=== PATIENT | male | born 1950 | race Two or more races ===

== ENCOUNTER 2017-05-04 09:18 | Emergency (ER) | payer OTHER, MEDICAID ==
[2017-05-04 09:25] VITALS: TEMP 97.9
[2017-05-04] MEDS ORDERED: NS 500 ML IV ONE (09:26)
[2017-05-04 09:35] LABS: % IMMATURE GRANULYOCYTES 0.4 % (0.0-1.1); ABSOLUTE IMMATURE GRANULOCYTES 0.03 10^3/uL (0.00-0.10); ADD DIFF? NO; ADD MORPH? NO; ADD SCAN? NO; ATYPICAL LYMPHOCYTE FLAG 0 (0-99); FRAGMENT RBC FLAG 0 (0-99); HEMATOCRIT 43.3 % (40.0-51.0); HEMOGLOBIN 14.2 g/dL (13.7-17.5); LEFT SHIFT FLG 0 (0-99); LIPEMIA HEMOLYSIS FLAG 80 (0-99); MEAN CELL HEMOGLOBIN CONCENTR. 32.8 g/dL (32.4-36.7); MEAN CELL VOLUME 88.5 fL (81.5-99.8); MEAN PLATELET VOLUME 9.3 fL (8.7-11.7); PLATELET CLUMPS FLAG 0 (0-99); PLATELET COUNT 212 10^3/uL (150-400); RED BLOOD CELL COUNT 4.89 10^6/uL (4.40-6.38); RED CELL DISTRIBUTION WIDTH 15.2 % (11.5-15.2)
--- NOTE | 2017-05-04 09:42 | CPEKG ---
Heart Rate: 86 RR Interval: 698 P-R Interval: 152 QRSD Interval: 86 QT Interval: 368 QTC Interval: 440 P Charleston: 52 QRS Charleston: 13 T Wave Charleston: 47 EKG Severity - OTHERWISE NORMAL ECG - EKG Impression: SINUS RHYTHM EKG Impression: LOW VOLTAGE IN FRONTAL LEADS Electronically Signed By: Ernestine Chan 04-May-2017 15:10:16
[2017-05-04 10:10] LABS: ANION GAP 16 mEq/L (8-16); CALCIUM 9.1 mg/dL (8.5-10.4); CARBON DIOXIDE 21 mEq/l (22-31); CHLORIDE 109 mEq/L (97-110); CREATININE 1.3 mg/dL (0.7-1.3); GLOMERULAR FILTRATION RATE 55; GLUCOSE 107 mg/dL (70-100); POTASSIUM 3.7 mEq/L (3.5-5.2); SODIUM 146 mEq/L (134-144)
[2017-05-04 10:21] LABS: TROPONIN I < 0.012 ng/mL (0-0.034)
--- NOTE | 2017-05-04 10:41 | EDPHY ---
H & P Time Seen by Provider: 05/04/17 09:27 HPI/ROS: HPI Fainting episode. 66-year-old male by ambulance. Patient is homeless. [facility] afternoon. He went out with a friend of his yesterday evening and in his words got drunk and drink lots of liquor. He reports he woke up this morning. He went to the store to get some water. While online to by his water he felt lightheaded and lost consciousness. No witnessed seizure activity. EMS was called to the scene and transported the patient to the hospital. He denies any associated headache, chest pain, palpitations, shortness of breath. No neck pain. No numbness or weakness in his extremities. No changes in vision. No other complaints. He is asking for something to eat at this time and is requesting discharge. He states he is asymptomatic at this time ROS: Constitutional: No fever, no chills. As above. Eyes: No discharge. No changes in vision. ENT: No sore throat. No nasal congestion or rhinorrhea. Respiratory: No cough. No shortness of breath. Cardiac: No chest pain, no palpitations. Gastrointestinal: No abdominal pain, no vomiting, no diarrhea. Genitourinary: No hematuria. No dysuria or increased frequency with urination. Musculoskeletal: No back pain. No neck pain. No myalgias or arthralgias. Skin: No rashes. Neurological: No headache. No focal weakness or altered sensation. Past medical history: Asthma, type 2 diabetes, borderline personality disorder. Social history: Homeless, alcohol abuse, polysubstance abuse, smoker. Physical Exam: General Appearance: Alert, no distress. Dirty. This patient is responding to questions appropriately and in full sentences. This patient appears well- hydrated and well-nourished. Eyes: Pupils equal and round no pallor or injection. No lid edema, erythema or injection. ENT, Mouth: Mucous membranes are moist. The pharyngeal tissues are unremarkable. No edema or swelling. No asymmetry suggestive of abscess. No erythema or exudates. No tongue lacerations or abrasions. Respiratory: There are no retractions, lungs are clear to auscultation with good air movement bilaterally. Cardiovascular: Regular rate and rhythm. No murmur. Gastrointestinal: Abdomen is soft and nontender, no masses, bowel sounds normal. [facility]. No [place] sign. Neurological: Motor sensory function is grossly intact. Cranial nerves are normal. Gait is normal. Skin: Warm and dry, no rashes. Musculoskeletal: Neck is supple and nontender. Extremities are symmetrical. All joints range without pain or impingement. Psychiatric: No agitation. No depression. Database: EKG: EKG time is 9:40 a.m.; EKG shows a narrow complex normal sinus rhythm with a ventricular rate of 86. The CO, QRS, QT intervals are within normal limits. There are no ST-T wave changes indicative of ischemic or injury pattern. No evidence of right heart strain. No evidence of Brugada syndrome, WPW, hypertrophic cardiomyopathy. Interpreted by me. Imaging: Procedures: Emergency department course: IV placed. He was placed on a formula mixer. EKG performed. He was given 500 cc of IV normal saline as a bolus. Patient re-evaluated at 10:40 a.m., he is requesting a meal. Results of his EKG and emergency department workup discussed with him. He denies any complaints at this time. He has been up and ambulatory to the bathroom. 10:45 a.m., I was told by the nursing staff that when the patient was not given a meal tray but was offered a sandwich and some crackers he got up and left the emergency department prior to completion of his evaluation. I did not see this patient again. Differential Diagnosis: The differential diagnosis on this patient includes but is not limited to dehydration, alcohol intoxication, noncardiac syncope. WPW, Brugada syndrome, other arrhythmia, CVA, pulmonary embolism, subarachnoid hemorrhage, mi unlikely. This represents a partial list of diagnoses considered. These considerations are based on history, physical exam, past history, reassessment and diagnostic testing. Smoking Status: Heavy smoker Constitutional: Initial Vital Signs Temperature (C) 36.6 C 05/04/17 09:20 Heart Rate 88 05/04/17 09:20 Respiratory Rate 16 05/04/17 09:20 Blood Pressure 95/58 L 05/04/17 09:20 O2 Sat (%) 93 05/04/17 09:20 O2 Delivery Mode Room Air O2 (L/minute) 2 Allergies/Adverse Reactions: No Known Allergies Allergy (Unverified 05/04/17 09:25) Home Medications: Medication Instructions Recorded NK [No Known Home Meds] 05/04/17 Medical Decision Making - Data Points Laboratory Results: Laboratory Results 05/04/17 09:26 05/04/17 09:26 Medications Given: Discontinued Medications Sodium Chloride (Ns) 500 mls @ 0 mls/hr IV ONCE ONE; Wide Open PRN Reason: Protocol Stop: 05/04/17 09:27 Last Admin: 05/04/17 09:45 Dose: 500 mls Departure - Departure Disposition: Against Medical Advice Clinical Impression: Syncope, Alcohol abuse Condition: Good Instructions: Syncope (ED) Additional Instructions: Read and follow provided instructions. Follow-up with your primary care physician at [facility] in 1-2 days for re -evaluation. Keep yourself well hydrated. Drink lots of fluids. Return to the emergency department for fainting, chest pain, shortness of breath , headache or other serious concerns. Referrals: [facility],. [Clinic] - As per Instructions
[2017-05-04 10:42] VITALS: BP 141/83; PULSE 82; RESP 18; O2SAT 97
== END 2017-05-04 10:44 | disposition left against medical advice (07) ==
LOC: EDUNIT#
DX: R55 Syncope and collapse (principal); F10.10 Alcohol abuse, uncomplicated; E11.9 Type 2 diabetes mellitus without complications; J45.909 Unspecified asthma, uncomplicated; F17.200 Nicotine dependence, unspecified, uncomplicated; E86.9 Volume depletion, unspecified

== ENCOUNTER 2017-09-28 03:07 | Emergency (ER) | payer OTHER, MEDICAID ==
[~2017-09-28 03:07] MED LIST: DOXYCYCLINE HYCLATE 100 MG CAP/TAB PO SCH; predniSONE 20 MG TAB PO SCH
[2017-09-28] MEDS ORDERED: methylPREDNISolone SOD SUCC 125 MG/2 ML VIAL IVP ONE (03:11)
[2017-09-28] MEDS ORDERED: IPRATROPIUM/ALBUTEROL 3 ML DEYVIAL ONE (03:11)
[2017-09-28] MEDS: IPRATROPIUM/ALBUTEROL 3 ML DEYVIAL IH ONE ×2 (03:16→06:21)
--- NOTE | 2017-09-28 03:18 | EDPHY ---
H & P Stated Complaint: COPD exacerbation. Time Seen by Provider: 09/28/17 03:11 HPI/ROS: HPI The patient presents with shortness of breath and coughing which has been progressively worse over the last few days. He felt very short of breath tonight while he was at the [facility] [place] [facility] and called 911. He has a history of COPD and is supposed to be taking medication and using supplemental oxygen, he is not doing either of these. He has a cough productive of whitish sputum. He has not had any fever. Upon arrival of the medics he was hypoxic, sats improved with 2 L nasal cannula.. REVIEW OF SYSTEMS Constitutional: No fever, no chills. Eyes: No discharge. ENT: No sore throat. Cardiovascular: No chest pain, no palpitations. Respiratory: See HPI Gastrointestinal: No abdominal pain, no vomiting. Genitourinary: No hematuria. Musculoskeletal: No back pain. Skin: No rashes. Neurological: No headache. PMHx: COPD Soc Hx: Homeless PHYSICAL General Appearance: Alert, actively coughing but in no respiratory distress Eyes: Pupils equal and round no pallor or injection ENT, Mouth: Mucous membranes moist Respiratory: Slightly tachypneic, expiratory wheezes are present, actively coughing Cardiovascular: Regular rate and rhythm Gastrointestinal: Abdomen is soft and non-tender, no masses, bowel sounds normal Neurological: A&O, moves all extremities Skin: Warm and dry, no rashes Musculoskeletal: Neck is supple non tender Extremities: symmetrical, full range of motion Psychiatric: Patient is oriented X 3, there is no agitation Source: Patient, EMS Exam Limitations: No limitations - Personal History Current Tetanus/Diphtheria Vaccine: Unsure Current Tetanus Diphtheria and Acellular Pertussis (TDAP): Unsure - Medical/Surgical History Hx Asthma: Yes Hx Chronic Respiratory Disease: Yes Hx Diabetes: No Hx Cardiac Disease: No Hx Renal Disease: No Hx Cirrhosis: No Hx Alcoholism: No Hx HIV/AIDS: No Hx Splenectomy or Spleen Trauma: No Other PMH: COPD, emphysema, asthma. - Social History Smoking Status: Current every day smoker Constitutional: Initial Vital Signs Temperature (C) 37.1 C 09/28/17 03:09 Heart Rate 102 H 09/28/17 03:09 Respiratory Rate 18 09/28/17 03:09 Blood Pressure 143/90 H 09/28/17 03:09 O2 Sat (%) 88 L 09/28/17 03:09 O2 Delivery Mode Room Air Allergies/Adverse Reactions: No Known Allergies Allergy (Unverified 05/04/17 09:25) Home Medications: Medication Instructions Recorded Albuterol [Proventil Inhaler HFA 1 - 2 puffs IH Q4H #1 mdi 09/28/17 (*)] Doxycycline Hyclate [Vibramycin 100 mg PO BID 7 Days cap 09/28/17 100 MG (*)] predniSONE 40 mg PO DAILY 4 Days tablet 09/28/17 Medical Decision Making - Diagnostics Imaging Results: Chest x-ray two view shows no obvious infiltrate, no cardiomegaly, interpreted by me, radiology interpretation is pending. Imaging: I viewed and interpreted images myself Differential Diagnosis: 67-year-old male, with history of homelessness, COPD who presents with progressive shortness of breath and cough over the last several days. On arrival, he is hypoxic, tachypneic, has expiratory wheezes and is actively coughing. Differential diagnosis includes COPD exacerbation, pneumonia, viral URI, influenza. In the emergency department, the patient was placed on 2 L nasal cannula with improvement in his oxygenation. DuoNeb was administered and he felt much better. Chest x-ray was performed and was unremarkable. Basic labs were also normal. He was given a dose of doxycycline and Solu-Medrol for presumed COPD exacerbation. He did refuse influenza nasal swab because he thought it would be very uncomfortable. He was monitored for several hours, his oxygenation improved. We were able to take him off of supplemental oxygen and he had no respiratory distress whatsoever and felt quite well. His sats were in the high 80s, however when he coughs they increase to the 90s. After repeat albuterol neb, sats are in the low 90s. I have offered him admission, however he declines. He would like to go home. It seems that he would benefit from supplemental oxygen as an outpatient and he has been working with a distributor to obtain this at his [facility] [place] [facility]. He has been off of it for the last few months. I have written additional prescription for oxygen for him and I will put in a note for the corrections caseworker. I have advised him to follow up in [facility] in 1-2 days for recheck. We will use the [employer] program to provide him his medications to go home with. - Data Points Laboratory Results: Laboratory Results 09/28/17 03:46 09/28/17 03:46 09/28/17 09/28/17 03:46 03:46 WBC 10.63 10^3/uL H 10^3/uL (3.80-9.50) RBC 5.17 10^6/uL 10^6/uL (4.40-6.38) Hgb 15.3 g/dL g/dL (13.7-17.5) Hct 46.4 % % (40.0-51.0) MCV 89.7 fL fL (81.5-99.8) MCH 29.6 pg pg (27.9-34.1) MCHC 33.0 g/dL g/dL (32.4-36.7) RDW 15.1 % % (11.5-15.2) Plt Count 284 10^3/uL 10^3/uL (150-400) MPV 8.5 fL L fL (8.7-11.7) Neut % (Auto) 52.8 % % (39.3-74.2) Lymph % (Auto) 38.5 % % (15.0-45.0) Sampson % (Auto) 5.6 % % (4.5-13.0) Eos % (Auto) 2.1 % % (0.6-7.6) Baso % (Auto) 0.8 % % (0.3-1.7) Nucleat RBC Rel Count 0.0 % % (0.0-0.2) Absolute Neuts (auto) 5.61 10^3/uL 10^3/uL (1.70-6.50) Absolute Lymphs (auto) 4.09 10^3/uL H 10^3/uL (1.00-3.00) Absolute Monos (auto) 0.60 10^3/uL 10^3/uL (0.30-0.80) Absolute Eos (auto) 0.22 10^3/uL 10^3/uL (0.03-0.40) Absolute Basos (auto) 0.09 10^3/uL 10^3/uL (0.02-0.10) Absolute Nucleated RBC 0.00 10^3/uL 10^3/uL (0-0.01) Immature Gran % 0.2 % % (0.0-1.1) Immature Gran # 0.02 10^3/uL 10^3/uL (0.00-0.10) Sodium 142 mEq/L mEq/L (134-144) Potassium 4.2 mEq/L mEq/L (3.5-5.2) Chloride 108 mEq/L mEq/L (97-110) Carbon Dioxide 21 mEq/l L mEq/l (22-31) Anion Gap 13 mEq/L mEq/L (8-16) BUN 16 mg/dL mg/dL (7-23) Creatinine 0.9 mg/dL mg/dL (0.7-1.3) Estimated GFR > 60 Glucose 106 mg/dL H mg/dL (70-100) Calcium 9.8 mg/dL mg/dL (8.5-10.4) Medications Given: Discontinued Medications Albuterol (Proventil Neb) 3 ml IH EDNOW ONE Stop: 09/28/17 06:19 Last Admin: 09/28/17 06:22 Dose: 3 ml Albuterol Sulfate (Proventil Inh Prepack) 1 mdi TAKEHOME EDNOW ONE Stop: 09/28/17 05:39 Last Admin: 09/28/17 06:06 Dose: 1 mdi Albuterol/Ipratropium (Duoneb) 3 ml IH EDNOW ONE Stop: 09/28/17 03:12 Last Admin: 09/28/17 06:21 Dose: 3 ml Doxycycline Hyclate (Vibramycin 100 Mg Prepack#2) 1 btl TAKEHOME EDNOW ONE Stop: 09/28/17 05:38 Last Admin: 09/28/17 06:07 Dose: 1 btl Doxycycline Hyclate (Doxycycline Hyclate) 100 mg PO EDNOW ONE PRN Reason: Protocol Stop: 09/28/17 05:38 Last Admin: 09/28/17 06:05 Dose: 100 mg Methylprednisolone Sodium Succinate (Solu-Medrol) 125 mg IVP EDNOW ONE Stop: 09/28/17 03:12 Last Admin: 09/28/17 03:42 Dose: 125 mg Departure - Departure Disposition: Home, Routine, Self-Care Clinical Impression: Chronic obstructive pulmonary disease with acute exacerbation Condition: Good Instructions: COPD (Chronic Obstructive Pulmonary Disease) (ED) Additional Instructions: Please follow-up with [facility] in 1-2 days. You should return to the emergency department if your worse in any way. Please continue to work on obtaining your home oxygen. I have asked that our corrections caseworker assist you with this as needed. Referrals: [facility] [Outside] - As per Instructions Prescriptions: Albuterol [Proventil Inhaler HFA (*)] 1 - 2 puffs IH Q4H #1 mdi Doxycycline Hyclate [Vibramycin 100 MG (*)] 100 mg PO BID 7 Days cap predniSONE 40 mg PO DAILY 4 Days tablet
[2017-09-28 04:05] LABS: % IMMATURE GRANULYOCYTES 0.2 % (0.0-1.1); ABSOLUTE IMMATURE GRANULOCYTES 0.02 10^3/uL (0.00-0.10); ADD DIFF? NO; ADD MORPH? NO; ADD SCAN? NO; ATYPICAL LYMPHOCYTE FLAG 10 (0-99); FRAGMENT RBC FLAG 0 (0-99); HEMATOCRIT 46.4 % (40.0-51.0); HEMOGLOBIN 15.3 g/dL (13.7-17.5); LEFT SHIFT FLG 0 (0-99); LIPEMIA HEMOLYSIS FLAG 80 (0-99); MEAN CELL HEMOGLOBIN 29.6 pg (27.9-34.1); MEAN CELL VOLUME 89.7 fL (81.5-99.8); MEAN PLATELET VOLUME 8.5 fL (8.7-11.7); PLATELET CLUMPS FLAG 0 (0-99); PLATELET COUNT 284 10^3/uL (150-400); RED BLOOD CELL COUNT 5.17 10^6/uL (4.40-6.38); RED CELL DISTRIBUTION WIDTH 15.1 % (11.5-15.2)
[2017-09-28 04:10] LABS: ANION GAP 13 mEq/L (8-16); CALCIUM 9.8 mg/dL (8.5-10.4); CARBON DIOXIDE 21 mEq/l (22-31); CHLORIDE 108 mEq/L (97-110); CREATININE 0.9 mg/dL (0.7-1.3); GLOMERULAR FILTRATION RATE > 60; GLUCOSE 106 mg/dL (70-100); POTASSIUM 4.2 mEq/L (3.5-5.2); SODIUM 142 mEq/L (134-144)
[2017-09-28] MEDS ORDERED: DOXYCYCLINE 100 MG PREPACK#2 BTL TAKEHOME ONE (05:37)
[2017-09-28] MEDS ORDERED: DOXYCYCLINE HYCLATE 100 MG CAP/TAB PO ONE (05:37)
[2017-09-28] MEDS ORDERED: ALBUTEROL INH PREPACK MDI TAKEHOME ONE (05:38)
[2017-09-28] MEDS ORDERED: ALBUTEROL 3 ML DEYVIAL IH ONE (06:18)
[2017-09-28 06:36] VITALS: TEMP 97.9
[2017-09-28 06:38] VITALS: BP 143/94; PULSE 81; RESP 18; O2SAT 90
--- NOTE | 2017-09-28 17:44 | ASMTCMCOM ---
CM Note CM Note Notes: Patient presented to the ER this morning and left AMA. Patient has history of COPD and has prescription for home O2, although patient is homeless, stays at the [place] custodial and has not followed with with referrals to the [facility] in the past. Patient had left prior to my arrival this morning.I contcted the patient's sister Keturah (do not have a contact for this patient) shortly after I arrived this morning to discuss options for obtaining "home" O2. Keturah told me that she had received a call from the patient recently and that she was on her way to meet him in [place]. I suggested that she encourage patient to follow up with an appointment at the clinic in order to establish a PCP and have follow up and management for his oxygen needs. I also explained that if/when the patient presents to the ER, we can ask respiratory therapy to contact an oxygen company to see patient prior to discharge to arrange home 02, but that the patient will still need to be followed with a PCP for continued orders and medical management. Keturah verbalizes understanding and states she will try to encourage patient to follow up with the clinic Date Signed: 09/28/2017 05:44 PM Electronically Signed By:Stefany Gibbons RN
== END 2017-09-28 06:38 | disposition home or self-care (01) ==
LOC: EDUNIT#
DX: J44.1 Chronic obstructive pulmonary disease with (acute) exacerbation (principal); F17.200 Nicotine dependence, unspecified, uncomplicated
CPT/HCPCS: 71020; 96374; 99284; J2930; J7512

== ENCOUNTER 2019-01-25 14:59 | Emergency (ER) | payer OTHER, MEDICAID ==
[2019-01-25 16:13] LABS: PLATELET COUNT 279 10^3/uL (150-400)
--- NOTE | 2019-01-25 16:21 | EDPHY ---
H & P Time Seen by Provider: 01/25/19 15:58 HPI/ROS: HPI Feeling paranoid. Recently started psychiatric medications again. 68-year-old male. He is a [facility] client. He has a history of bipolar disorder and schizophrenia. He was off of his medications for about a week. He met with his block and case maker with [facility] today. He was started on his medications again. He presents to the emergency department stating that he is feeling very paranoid and that he feels people are watching him. He was brought to the emergency department to be evaluated by his block and case maker. He is not having suicidal thoughts. He denies significant depression. He states that he does feel anxious. ROS: Constitutional: No fever, no chills. As above. Eyes: No discharge. No changes in vision. ENT: No sore throat. No nasal congestion or rhinorrhea. Respiratory: No cough. No shortness of breath. Cardiac: No chest pain, no palpitations. Gastrointestinal: No abdominal pain, no vomiting, no diarrhea. Genitourinary: No hematuria. No dysuria or increased frequency with urination. Musculoskeletal: No back pain. No neck pain. No myalgias or arthralgias. Skin: No rashes. Neurological: No headache. No focal weakness or altered sensation. Past medical history: COPD, emphysema, asthma. Bipolar, schizophrenia. As above. Social history: Smoker. Has an apartment in [place]. Denies alcohol. Physical Exam: General Appearance: Alert, mildly anxious but not in distress. This patient is responding to questions appropriately and in full sentences. This patient appears well-hydrated and well-nourished. Eyes: Pupils equal and round no pallor or injection. No lid edema, erythema or injection. Neurological: Motor sensory function is grossly intact. Cranial nerves are normal. Gait is normal. Skin: Warm and dry, no rashes. Extremities are symmetrical. All joints range without pain or impingement. Psychiatric: As above. No depression. Database: EKG: Imaging: Procedures: Emergency department course: Triage vital signs reviewed. He was mildly tachycardic. Vital signs are otherwise normal. The patient was given 5 mg of oral Valium. He was then re- evaluated. He is feeling more relaxed after these medications and he feels safe to return to his apartment. He is not suicidal. We will contact his block and case maker who dropped him off at the emergency department to come back and pick him up and take him home. At this time I do not feel he requires emergent behavioral health evaluation. The patient's remaining emergency department course under my care has been uneventful. He was discharged with his block and case maker in good condition. Differential Diagnosis: The differential diagnosis on this patient includes but is not limited to anxiety, transient paranoia, history of schizophrenia. Suicidal ideation, severe major depression unlikely. This represents a partial list of diagnoses considered. These considerations are based on history, physical exam, past history, reassessment and diagnostic testing. Smoking Status: Current every day smoker Constitutional: Initial Vital Signs Temperature (C) 36.7 C 01/25/19 15:06 Heart Rate 117 H 01/25/19 15:06 Respiratory Rate 18 01/25/19 15:06 Blood Pressure 113/80 01/25/19 15:06 O2 Sat (%) 93 01/25/19 15:06 O2 Delivery Mode Room Air Allergies/Adverse Reactions: No Known Allergies Allergy (Unverified 05/04/17 09:25) Home Medications: Medication Instructions Recorded Albuterol [Proventil Inhaler HFA 1 - 2 puffs IH Q4H #1 mdi 09/28/17 (*)] Citalopram 01/25/19 Medical Decision Making - Data Points Laboratory Results: Laboratory Results 01/25/19 16:04 01/25/19 01/25/19 01/25/19 16:08 16:04 16:04 WBC 10.29 10^3/uL H 10^3/uL (3.80-9.50) RBC 5.82 10^6/uL 10^6/uL (4.40-6.38) Hgb 16.2 g/dL g/dL (13.7-17.5) Hct 49.3 % % (40.0-51.0) MCV 84.7 fL fL (81.5-99.8) MCH 27.8 pg L pg (27.9-34.1) MCHC 32.9 g/dL g/dL (32.4-36.7) RDW 15.5 % H % (11.5-15.2) Plt Count 279 10^3/uL 10^3/uL (150-400) MPV 8.7 fL fL (8.7-11.7) Neut % (Auto) 73.2 % % (39.3-74.2) Lymph % (Auto) 18.2 % % (15.0-45.0) [place]inger % (Auto) 7.5 % % (4.5-13.0) Eos % (Auto) 0.2 % L % (0.6-7.6) Baso % (Auto) 0.6 % % (0.3-1.7) Nucleat RBC Rel Count 0.0 % % (0.0-0.2) Absolute Neuts (auto) 7.54 10^3/uL H 10^3/uL (1.70-6.50) Absolute Lymphs (auto) 1.87 10^3/uL 10^3/uL (1.00-3.00) Absolute Monos (auto) 0.77 10^3/uL 10^3/uL (0.30-0.80) Absolute Eos (auto) 0.02 10^3/uL L 10^3/uL (0.03-0.40) Absolute Basos (auto) 0.06 10^3/uL 10^3/uL (0.02-0.10) Absolute Nucleated RBC 0.00 10^3/uL 10^3/uL (0-0.01) Immature Gran % 0.3 % % (0.0-1.1) Immature Gran # 0.03 10^3/uL 10^3/uL (0.00-0.10) Sodium Pending Potassium Pending Chloride Pending Carbon Dioxide Pending Anion Gap Pending BUN Pending Creatinine Pending Estimated GFR Pending Glucose Pending Calcium Pending Urine Opiates Screen Pending Urine Barbiturates Pending Ur Phencyclidine Scrn Pending Ur Amphetamine Screen Pending U Benzodiazepines Scrn Pending Urine Cocaine Screen Pending U Marijuana (THC) Screen Pending Ethyl Alcohol Pending Departure - Departure Disposition: Home, Routine, Self-Care Clinical Impression: Anxiety Condition: Good Instructions: Anxiety (ED) Additional Instructions: Read and follow provided instructions. Follow-up with [facility] tomorrow for re-evaluation as discussed. Take your medication as prescribed. Return to the emergency department for worsening symptoms or other serious concerns. Referrals: [facility] [Outside] - As per Instructions
[2019-01-25] MEDS ORDERED: DIAZEPAM 5 MG TAB PO ONE (16:28)
[2019-01-25] MEDS ORDERED: DIAZEPAM 5 MG TAB ONE (16:29)
[2019-01-25 16:34] VITALS: BP 119/80
== END 2019-01-25 16:33 | disposition home or self-care (01) ==
LOC: EEVIPCON 14:59
DX: F41.9 Anxiety disorder, unspecified (principal); F20.9 Schizophrenia, unspecified; F31.9 Bipolar disorder, unspecified; J43.9 Emphysema, unspecified; Z87.891 Personal history of nicotine dependence
CPT/HCPCS: 80305; G0480

== ENCOUNTER 2019-01-31 18:40 | Inpatient (IN) | payer OTHER, MEDICAID ==
[2019-01-31] MEDS ORDERED: ASPIRIN 81 MG CHEWABLE TAB PO ONE (18:58)
[2019-01-31] MEDS ORDERED: ASPIRIN 81 MG CHEWABLE TAB ONE (18:59)
--- NOTE | 2019-01-31 19:06 | EDPHY ---
H & P Stated Complaint: cp Time Seen by Provider: 01/31/19 18:49 HPI/ROS: CHIEF COMPLAINT: Chest pain HISTORY OF PRESENT ILLNESS: 68-year-old male presents with chest pain. Onset of chest pain yesterday evening at rest. The pain is severe, 10/10, and persistent. Associated with shortness of breath and dizziness. Unable to do his usual activities or to sleep because of severe pain. No alleviating or aggravating factors. No prior similar symptoms. No prior similar symptoms or history of cardiac disease. REVIEW OF SYSTEMS: complete 10 point ROS reviewed and is negative except for the noted elements in the HPI - Personal History Current Tetanus/Diphtheria Vaccine: Yes Current Tetanus Diphtheria and Acellular Pertussis (TDAP): Yes - Medical/Surgical History Hx Asthma: Yes Hx Chronic Respiratory Disease: Yes Hx Diabetes: No Hx Cardiac Disease: No Hx Renal Disease: No Hx Cirrhosis: No Hx Alcoholism: No Hx HIV/AIDS: No Hx Splenectomy or Spleen Trauma: No Other PMH: COPD, schizophrenia - Family History Significant Family History: No pertinent family hx - Social History Smoking Status: Current every day smoker Alcohol Use: Sober Drug Use: None - Physical Exam Exam: General Appearance: Alert, pleasant Eyes: Pupils equal and round, no conjunctival pallor or injection ENT, Mouth: Mucous membranes moist Neck: Normal inspection Respiratory: Lungs are clear to auscultation Cardiovascular: Regular rate and rhythm Gastrointestinal: Abdomen is soft and nontender Neurological: A&O, nonfocal exam Skin: Warm and dry, no rash Extremities: Nontender, no pedal edema Psychiatric: Mood and affect normal Constitutional: Initial Vital Signs Temperature (C) 36.5 C 01/31/19 18:45 Heart Rate 60 01/31/19 18:45 Respiratory Rate 16 01/31/19 18:45 Blood Pressure 170/103 H 01/31/19 18:45 O2 Sat (%) 94 01/31/19 18:45 O2 Delivery Mode Room Air Allergies/Adverse Reactions: No Known Allergies Allergy (Unverified 01/31/19 18:45) Home Medications: Medication Instructions Recorded Albuterol [Proventil Inhaler HFA 1 - 2 puffs IH Q4H #1 mdi 09/28/17 (*)] Citalopram 01/25/19 Medical Decision Making - Diagnostics EKG Interpretation: EKG interpreted by me reveals normal sinus rhythm, rate 60, ST segment elevation in the inferior and lateral leads, consistent with acute inferolateral NV. Imaging Results: Chest x-ray independently reviewed by me reveals no acute disease. Imaging: I viewed and interpreted images myself ED Course/Re-evaluation: This patient presents with 24 hr history of severe chest pain. Stat EKG reveals acute inferior NV. A cardiac alert was paged overhead. Aspirin 324 mg orally given. Morphine 4 mg IV and Zofran 4 mg IV given for pain control. Stat chest x-ray is unremarkable. Dr. Knox was consulted and saw the patient in ED. The patient was taken straight to the cardiac catheterization lab. He was stable throughout his emergency department stay. Continued to have moderate chest pain. Initial troponin is markedly elevated at 10. I spent a total of 35 minutes of critical care time in obtaining history, performing a physical exam, bedside monitoring of interventions, collecting and interpreting tests and discussion with consultants but not including time spent performing procedures. Differential Diagnosis: Differential diagnosis includes though it is not limited to pneumonia, pneumothorax, pulmonary embolism, aortic dissection, pericarditis, acute coronary syndrome. - Data Points Laboratory Results: Laboratory Results 01/31/19 19:00 01/31/19 19:00 01/31/19 01/31/19 01/31/19 19:04 19:00 19:00 WBC 8.83 10^3/uL 10^3/uL (3.80-9.50) RBC 5.66 10^6/uL 10^6/uL (4.40-6.38) Hgb 15.5 g/dL g/dL (13.7-17.5) Hct 47.5 % % (40.0-51.0) MCV 83.9 fL fL (81.5-99.8) MCH 27.4 pg L pg (27.9-34.1) MCHC 32.6 g/dL g/dL (32.4-36.7) RDW 15.9 % H % (11.5-15.2) Plt Count 312 10^3/uL 10^3/uL (150-400) MPV 8.6 fL L fL (8.7-11.7) Neut % (Auto) 58.1 % % (39.3-74.2) Lymph % (Auto) 32.5 % % (15.0-45.0) Butts % (Auto) 7.7 % % (4.5-13.0) Eos % (Auto) 0.6 % % (0.6-7.6) Baso % (Auto) 0.6 % % (0.3-1.7) Nucleat RBC Rel Count 0.0 % % (0.0-0.2) Absolute Neuts (auto) 5.14 10^3/uL 10^3/uL (1.70-6.50) Absolute Lymphs (auto) 2.87 10^3/uL 10^3/uL (1.00-3.00) Absolute Monos (auto) 0.68 10^3/uL 10^3/uL (0.30-0.80) Absolute Eos (auto) 0.05 10^3/uL 10^3/uL (0.03-0.40) Absolute Basos (auto) 0.05 10^3/uL 10^3/uL (0.02-0.10) Absolute Nucleated RBC 0.00 10^3/uL 10^3/uL (0-0.01) Immature Gran % 0.5 % % (0.0-1.1) Immature Gran # 0.04 10^3/uL 10^3/uL (0.00-0.10) Sodium 136 mEq/L mEq/L (135-145) Potassium 3.8 mEq/L mEq/L (3.5-5.2) Chloride 101 mEq/L mEq/L (97-110) Carbon Dioxide 24 mEq/l mEq/l (22-31) Anion Gap 11 mEq/L mEq/L (6-14) BUN 7 mg/dL mg/dL (7-23) Creatinine 0.6 mg/dL L mg/dL (0.7-1.3) Estimated GFR > 60 Glucose 115 mg/dL H mg/dL (70-100) Calcium 9.4 mg/dL mg/dL (8.5-10.4) POC Troponin I 10.41 ng/mL H ng/mL (0.00-0.08) Medications Given: Discontinued Medications Aspirin (Aspirin) 324 mg PO EDNOW ONE Stop: 01/31/19 18:59 Last Admin: 01/31/19 19:00 Dose: 324 mg Sodium Chloride (Ns) 1,000 mls @ 0 mls/hr IV ONCE ONE PRN Reason: Wide Open Stop: 01/31/19 19:11 Last Admin: 01/31/19 19:15 Dose: Not Given Morphine Sulfate (Morphine) 4 mg IVP EDNOW ONE Stop: 01/31/19 19:09 Last Admin: 01/31/19 19:11 Dose: 4 mg Ondansetron HCl (Zofran) 4 mg IVP EDNOW ONE Stop: 01/31/19 19:10 Last Admin: 01/31/19 19:12 Dose: 4 mg Point of Care Test Results: Chemistry 01/31/19 19:04 POC Troponin I 10.41 ng/mL H ng/mL (0.00-0.08) Departure - Departure Disposition: [facility] Inpatient Acute Clinical Impression: Acute coronary syndrome Condition: Critical
[2019-01-31] MEDS ORDERED: ONDANSETRON 4 MG/2 ML VIAL ONE (19:08)
[2019-01-31] MEDS ORDERED: ONDANSETRON 4 MG/2 ML VIAL IVP ONE (19:09)
[2019-01-31] MEDS ORDERED: NS 1,000 ML IV ONE (19:10)
[2019-01-31 19:17] LABS: PLATELET COUNT 312 10^3/uL (150-400)
[2019-01-31] MEDS ORDERED: fentaNYL 100 MCG/2 ML INJ ONE (19:19)
[2019-01-31] MEDS ORDERED: IOPAMIDOL (ISOVUE-370) 150 ML BTL IV ONE (19:19)
[2019-01-31] MEDS ORDERED: LIDOCAINE 1% 300 MG/30 ML SDV ONE (19:19)
[2019-01-31] MEDS ORDERED: MIDAZOLAM 2 MG/2 ML VIAL ONE ×2 (19:19)
[2019-01-31] MEDS ORDERED: NITROGLYCERIN 1,500 MCG/15 ML VIAL MISC ONE (19:20)
[2019-01-31] MEDS ORDERED: BIVALIRUDIN 250 MG/5 ML VIAL IV ONE (19:20)
--- NOTE | 2019-01-31 19:29 | GHP ---
[f rep st] HISTORY AND PHYSICAL DATE OF ADMISSION: 01/31/2019 I am called in [facility] at 7:14. HISTORY OF PRESENT ILLNESS: Mr. Alvarez is a very pleasant 68-year-old male, history of smoking. No prior cardiovascular history. History of longstanding COPD, actively smoking, who presents with a 1-day history of substernal precordial chest pressure radiating to his jaw. He describes it as 10/1 0, associated with mild shortness of breath, mild nausea, and mild diaphoresis. He came to the emerg ency department for further evaluation. On arrival to the department, he had an EKG showing ST eleva tion 2, 3 and AVF with a blood pressure of 180/70, a heart rate of 82. Cardiac alert was activated. On my arrival, he has continued to have 10/10 discomfort. ALLERGIES: He has no known drug allergies. MEDICATIONS: No medications. SURGICAL HISTORY: Unremarkable. SOCIAL HISTORY: Just moved here from [place]. 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 No signific ant alcohol. PHYSICAL EXAMINATION: VITALS: On my arrival, blood pressure 180/70, current heart rate 82. GENERAL : This is a well-nourished male in mild discomfort, resting flat in bed. HEENT: Significa nt conjunctival injection. He had no scleral icterus. His oropharynx showed no dentures. There was no thrush. NECK: Revealed no JVP at 90 degrees. CHEST: Clear to auscultation, percussion. Palpa tion of the anterior chest wall revealed no RV lift. PULSES: Radial pulses were +3 and equal. Femo ral pulses were +3 and equal. Dorsalis pedis pulses were +2 and equal. EXTREMITIES: He had no akiko pheral edema. SKIN: Revealed no rash. NEURO: He is alert and oriented with normal mood and affect . DATA REVIEWED: EKG showed sinus rhythm with [address]-elevation in 2, 3 and AVF. He has a PVC. LABORATORY DATA: Pending. IMPRESSION: ST-segment elevation myocardial infarction involving the inferior wall likely. PLAN: Directed cardiac catheterization with percutaneous intervention. Aggressive secondary prevent ion including smoking cessation will be discussed. Questions answered. He will be taken to the medical laboratory technicians directly. /[id number]/MODL
[2019-01-31] MEDS ORDERED: VERAPAMIL 5 MG/2 ML VIAL ONE (19:42)
[2019-01-31] MEDS ORDERED: HEPARIN 10,000 UNIT/10 ML MDV (1,000 UNIT/ML) ONE (19:42)
[2019-01-31] MEDS ORDERED: CLOPIDOGREL BISULFATE 75 MG TAB ONE (20:04)
--- NOTE | 2019-01-31 20:05 | CPEKG ---
Test Reason : OPEN Blood Pressure : / mmHG Vent. Rate : 060 BPM Atrial Rate : 059 BPM P-R Int : 150 ms QRS Dur : 090 ms QT Int : 424 ms P-R-T Axes : 068 -24 063 degrees QTc Int : 424 ms Sinus rhythm Ventricular premature complex Inferior infarct, acute (RCA) Lateral leads are also involved Probable RV involvement, suggest recording right precordial leads Confirmed by Tangela Parada ([id number]) on 01/31/2019 8:05:20 PM Referred By: Tangela Parada Confirmed By:Tangela Parada
[2019-01-31] MEDS ORDERED: ONDANSETRON 4 MG/2 ML VIAL IVP PRN (20:18)
[2019-01-31] MEDS ORDERED: NITROGLYCERIN 0.4 MG BTL SL PRN (20:18)
[2019-01-31] MEDS ORDERED: LORazepam 1 MG TAB PO PRN (20:18)
[2019-01-31] MEDS ORDERED: LORazepam 2 MG/ML INJ IVP PRN (20:18)
--- NOTE | 2019-01-31 20:24 | PDPROPOC ---
Sedation Plan of Care Sedation Plan of Care: vital signs stable, mental status noted, patient educated of risks, benefits, alternatives, patient can tolerate sedation ASA Classification: ASA 3 Planned drugs: fentanyl, midazolam Mallampati Score: Class 1 Mallampati Reference Image: Patient passed 3-3-2 rule?: Yes
--- NOTE | 2019-01-31 20:29 | PDDXCAT ---
Diagnostic Cath Note - . Date: 01/31/19 Lumber Buyer: Abilio Indication: other (STEMI) - Procedure Access: right wrist Procedure: left heart catheterization, coronary angiography, left ventriculogram - Materials Left Heart Cath size: 6F Left Heart Cath materials: JL3.5, JR4.0, pigtail - Findings-Left Heart Catheterization LM: Unobstructed LAD: Luminal irregularities of 15-20%. LCX: Complex: Luminal irregularities of 10-20%. RCA: Dominant: Thrombotic lead occluded in the distal posterolateral branch. Proximal luminal irregularities of up to 30% EDP: 13 mm of mercury postprocedure LVEF: 50% Wall motion: Inferior akinesis postprocedure Complications: None Estimated blood loss: <50ml Closure method: TR Band Assessment: ST segment elevation myocardial infarction with thrombotic occlusion of the distal right coronary artery. Moderate nonobstructive atherosclerotic cardiovascular disease involving the left anterior descending and circumflex artery. Preserved LV systolic function with inferior akinesis. Plan: Directed PCI Intervention: After reviewing patient's EKG was brought to the cardiac catheterization lab. The right wrist was sterilely prepped and draped. 6 Mongolian sheath was inserted in the right radial artery. Using a 6 Mongolian JR4 guiding catheter the right coronary selectively intubated. Thrombotic occlusion was identified. Using a 0.014 luge wire the stenosis was crossed reestablishing antegrade flow. Using a 2 mm balloon single inflation was performed which showed significant improvement luminal diameter with MICHAEL grade 2 flow. Was elected proceed with stenting a 2.5 x 16 mm synergy stent was placed on the wire placed at the stenosis. Was deployed using a single inflation. Patient was administered nitroglycerin intracoronary. Repeat angiograms revealed a stent edge stenosis. A 2nd 2.25 x 12 mm synergy stent was placed distally and deployed using a single inflation. Stent balloon was used to post dilate the overlap. Repeat angiogram showed MICHAEL grade 3 flow to the distal posterolateral branch. Wire was withdrawn. Orthogonal angiograms were performed. We completed the diagnostic procedure using a 5 Mongolian JL 3.5 catheter and a 6 5 Mongolian pigtail catheter. Patient's pain resolved. He was hemodynamically stable. He was taken to the ICU in stable condition. Conclusions: Successful PCI and stenting of the right coronary artery in the setting of a ST segment elevation myocardial infarction. Patient be continued on dual antiplatelet therapy will begin Scot inhibition low- dose beta-vivienne high-dose statin therapy with clinical follow-up. Patient Problems: Problems Problem Status Onset Syncope Acute Acute coronary syndrome Acute
[2019-01-31] MEDS: METOPROLOL TARTRATE 50 MG TAB PO SCH (20:49)
[2019-01-31 22:50] LABS: CREATINE KINASE 2874 IU/L (0-224)
[2019-02-01 01:08] LABS: CREATINE KINASE 2362 IU/L (0-224)
[2019-02-01 04:15] LABS: CREATINE KINASE 2355 IU/L (0-224)
[2019-02-01 05:40] LABS: PLATELET COUNT 266 10^3/uL (150-400)
[2019-02-01 06:28] LABS: CREATINE KINASE 1913 IU/L (0-224)
--- NOTE | 2019-02-01 07:32 | PDMN ---
Medical Necessity Medical necessity: Pt meets IP criteria per MD & MCG M-230; est los >2 mn for eval/tx of STEMI; admit for urgent PCI & close ICU monitoring; hx COPD, smoking ; per H&P & order 01/31/19
[2019-02-01] MEDS ORDERED: LISINOPRIL 5 MG TAB PO SCH (09:00)
--- NOTE | 2019-02-01 09:07 | PDCARPN ---
Cardiology Progress Note Chief Complaint: CP Assessment/Plan: Assessment: STEMI PCI HTN Plan: 02/01/19 09:07 Doing very well echo this AM ASA, plavix, statin, BB transfer to floor Subjective: doing well Reviewed/Discussed With: multidisciplinary team Time Spent with Patient: greater than 25 minutes Time Spent with Patient: Greater than 25 minutes spent on this patients care, greater than 50% of time spent counseling, educating, and coordinating care regarding the above mentioned plan. Objective: Vital Signs (8 Hrs) Pulse Resp BP Pulse Ox 02/01/19 08:00 61 21 H 104/63 93 02/01/19 07:00 62 93 02/01/19 06:00 51 L 11 L 112/63 92 02/01/19 05:00 54 L 14 97/69 L 94 02/01/19 04:00 52 L 14 109/68 94 02/01/19 03:00 51 L 11 L 108/76 93 02/01/19 02:00 50 L 17 119/82 H 93 Intake/Output (24 Hrs) 01/31/19 02/01/19 02/02/19 05:59 05:59 05:59 Output Total 525 Balance -525 Output: Urine (ml) 525 Urinal 525 Other: Weight 72.575 kg Intake Quantity Yes Sufficient Number of Voids Urinal 1 Result Diagrams: 02/01/19 05:30 02/01/19 05:30 Cardiac Labs: Cardiac Lab Results (72 Hrs) 02/01/19 02/01/19 01/31/19 05:30 02:33 23:55 CK-MB (CK-2) Fraction 105.00 H 102.00 H 116.00 H Troponin I 52.800 H 69.200 H 94.000 H 01/31/19 21:25 CK-MB (CK-2) Fraction 115.00 H Troponin I 131.000 H - Physical Exam Constitutional: no apparent distress Eyes: PERRL Ears, Nose, Mouth, Throat: moist mucous membranes Cardiovascular: regular rate and rhythm Peripheral Pulses: 1+: femoral (R), femoral (L) Respiratory: clear to auscultate bilat Gastrointestinal: normoactive bowel sounds Genitourinary: no suprapubic tenderness Skin: no rashes Musculoskeletal: no muscular tenderness Neurologic: AAOx3 ICD10 Worksheet Patient Problems: Problems Problem Status Onset Acute coronary syndrome Acute chronic disease [facility]/transitional care Acute Syncope Acute
[2019-02-01] MEDS: ASPIRIN EC 81 MG TAB PO SCH (09:09)
[2019-02-01] MEDS: CLOPIDOGREL BISULFATE 75 MG TAB PO SCH (09:10)
[2019-02-01] MEDS: ATORVASTATIN CALCIUM 40 MG TAB PO SCH (09:10)
[2019-02-01] MEDS: METOPROLOL TARTRATE 50 MG TAB PO SCH ×2 (09:10→20:08)
[2019-02-01] MEDS ORDERED: ALBUTEROL 60 PUFFS/8 GM MDI IH PRN (10:24)
--- NOTE | 2019-02-01 10:37 | ECHO ---
[email or web address] [address] [address] Main: [phone] Echocardiography Examination Transthoracic Name: MANDI BOSTON MR#: [id number] Study Date: 02/01/2019 Study Time: 07:57 AM Date of : 1950 Age: 68 year(s) Height: 167.6 cm (66 in.) Weight: 72.58 kg (160 lb.) BSA: 1.82 m2 Gender: Male Examination: Echo Contrast: Image Quality: Adequate Rhythm: Heart Rate: BP: 109 mmHg/79 mmHg Indication: LV recovery/eval MR post NH Procedure Staff Referring Physician: Ehs Engineer: Shobha Pandya [facility] Reading Physician: Frank Cleveland MD Requesting Provider: Ordering Physician: Mauricio Knox MD Indication: LV recovery/eval MR post NH Measurements Chambers AV/MV Label Value Normal Value Label Value Normal Value LVDd, 2D 5.1 cm (4.2cm - 5.9cm) AV PGmean 3 mmHg LVDs, 2D 3.8 cm (2.1cm - 4cm) AV Vmax 1.23 m/s IVSd, 2D 0.7 cm (0.6cm - 1.1cm) MV E Vmax 0.72 m/s LVPWd, 2D 1 cm (0.6cm - 1cm) MV A Vmax 0.62 m/s LVEF, 2D 50 % (54% - 74%) MV E/A 1.16 TAPSE 3.6 cm MV E/E' lateral 9.4 LA Volume, BP 48 ml (18ml - 58ml) MV E/E' septal 10.2 (0.45 - 1.25) LADs, 2D 4.3 cm (3cm - 4cm) MV E' septal 0.07 m/s LAESV index, BP 26.4 ml/m2 MV E' lateral 0.08 m/s Additional Vessels MV E/E' mean 9.6 Label Value Normal Value MV E' mean 0.08 m/s AoAsc 3.3 cm TV/PV AoRoot, MM 3.8 cm (2.2cm - 3.7cm) Label Value Normal Value RA Pressure 5 mmHg RVSP 30 mmHg TR Pmax 25 mmHg TR Vmax 2.48 m/s Patient: MANDI BOSTON Study Date: 02/01/2019 Page 1 of 3 07:57 AM Conclusions Left Ventricle: LV basal/mid inferior/inferolateral avelar are akinetic. All remaining LV segments are slightly hyperdynamic.. EF range is estimated at 60 % - 65 %. Mitral Valve: Mild mitral regurgitation. Tricuspid Valve: Mild tricuspid regurgitation. Right Ventricular systolic pressure is measured at 30 mmHg. Findings Left Ventricle: LV basal/mid inferior/inferolateral avelar are akinetic. All remaining LV segments are slightly hyperdynamic.. Left ventricle is normal in size. EF range is estimated at 60 % - 65 %. Left ventricle wall thickness is normal. Left ventricular diastolic function parameters are normal. IVS: The septum is intact. Right Ventricle: Normal size right ventricle. Right ventricular wall thickness is normal. Right ventricular systolic function is normal. Left Atrium: The left atrium is normal in size. IAS: Normal appearing atrial septum. Right Atrium: The right atrium is normal in size. Mitral Valve: Mitral valve appears structurally normal. Mild mitral regurgitation. No mitral valve stenosis. Aortic Valve: Aortic leaflets exhibit normal cuspal separation. No aortic valve regurgitation. There is no aortic stenosis. The aortic valve is trileaflet. Tricuspid Valve: Tricuspid valve leaflets are normal in appearance and function. Mild tricuspid regurgitation. No tricuspid valve stenosis. Right Ventricular systolic pressure is measured at 30 mmHg. Pulmonary artery pressure normal. Pulmonic Valve: Pulmonic leaflets exhibit normal cuspal separation. No pulmonic valve regurgitation is evident. There is no pulmonic valve stenosis. Aorta: The aorta is normal. The aortic root size in M-mode measures 3.8 cm. The ascending aorta measures 3.3 cm. Aorta Measurements AoRoot, MM is 3.8 cm. Pulmonary Artery: The pulmonary artery morphology appears normal. IVC: The inferior vena cava is normal in size and course. Pericardium: No pericardial effusion. No pleural effusion present. Exam Details Procedure Ordered: Echo Procedure Status: Routine study Image Quality: Adequate Patient: MANDI BOSTON Study Date: 02/01/2019 Page 2 of 3 07:57 AM Facility Location: Cardiac Echo 1 (No Signature Object) Patient: MANDI BOSTON Study Date: 02/01/2019 Page 3 of 3 07:57 AM [id number]
--- NOTE | 2019-02-01 13:25 | ASMTCASEMG ---
Living Arrangements What is your living Answers: Alone arrangement? Who do you live with? Type Of Residence What kind of residence do Answers: Apartment you live in? Type of Residence Facility Name Notes: Patient has an apartment [address] [place] [address] with the [employer] [facility]. Patient is disabled. Discharge Plan Comments Coordination Status Comments Notes: Patient is a 68yo single male who came to [facility] ED due to chest pain. Patient is being admitted to inpatient for acute coronary syndrome. Patient had a left heart catheterization, coronary angiography and left ventriculogram. No therapies ordered at this time. Patient may be able to do cardiac rehab on an outpatient basis. Patient has a [facility] [employer] Observer Helper, Andrae Randolph. His number is [phone]. Andrae's card is in the front of the patient chart. Patient requested CM contact the court as he had a hearing this morning. The [facility] [address] was not answering the phone. Several attempts were made. Patient signed a release so his piano case and bench assembler Andrae can take documentation to the court of his hospitalization. D/C plan TBD. CM will follow. Date Signed: 02/01/2019 01:23 PM Electronically Signed By:Darby Sandoval LCSW
[2019-02-01 14:45] LABS: CREATINE KINASE 914 IU/L (0-224)
--- NOTE | 2019-02-01 17:49 | CPEKG ---
Test Reason : OPEN Blood Pressure : / mmHG Vent. Rate : 056 BPM Atrial Rate : 055 BPM P-R Int : 163 ms QRS Dur : 106 ms QT Int : 458 ms P-R-T Axes : 055 -54 010 degrees QTc Int : 443 ms Sinus rhythm Lateral infarct, acute ST eor injury Confirmed by Mauricio Calvillo ([id number]) on 02/01/2019 5:48:27 PM Referred By: MAURICIO CALVILLO Confirmed By:Mauricio Calvillo
[2019-02-02] MEDS ORDERED: NS 500 ML IV ONE ×2 (08:04→09:13)
[2019-02-02 08:26] LABS: PLATELET COUNT 245 10^3/uL (150-400)
--- NOTE | 2019-02-02 09:13 | SOAPPROG ---
SOAP Progress Note Assessment/Plan: Assessment: 1. Coronary artery disease. Late presentation with an inferolateral myocardial infarction. Status post PCI and stenting of the distal right coronary artery. Now hospital day 3. 2. Hypotension. Presently, I think this is likely medication related. There is no indication of acute stent thrombosis or a complication from the procedure resulting in significant bleeding. Clinically he does not appear to be suffering from a mechanical complication as result of his late presentation. It may be that there is a component of an RV infarct contributing to his hypotension. 3. History of COPD and active tobacco use. 4. Hyperlipidemia. Plan: 1. We will continue to monitor him in the ICU. 2. I have written to discontinue his lisinopril and, for the time being, to hold his beta-vivienne therapy. 3. He will be given 1 L of fluid and reassessed. 4. We will plan for a stat echocardiogram to evaluate for mechanical complications. 02/02/19 09:13 Subjective: Called to see this patient urgently with respect to hypotension. His chart was reviewed. His case was discussed with the nursing staff. In talking to him he states he feels fine. He has no symptoms of dizziness, lightheadedness or anginal quality chest discomfort. He is status post PCI for late presentation with an inferior wall myocardial infarction. Apparently, had a distal RCA lesion. His ejection fraction has historically been normal. Following his PCI he was started on lisinopril 5 mg daily and metoprolol 50 mg twice daily. These are new medications for him. He has been eating and drinking regularly. He notes no fever, chills or sweats. A stat CBC was performed with no indications of acute anemia. His ECG was reviewed which did not demonstrate any new ST or T changes. Objective: Vital Signs Temp Pulse Resp BP Pulse Ox 36.6 C 63 16 81/53 L 96 02/02/19 07:49 02/02/19 07:49 02/02/19 07:49 02/02/19 07:49 02/02/19 07:49 Laboratory Results 02/02/19 08:15 02/02/19 04:40 02/01/19 02/02/19 02/03/19 05:59 05:59 05:59 Intake Total 1860 Output Total 525 1050 300 Balance -525 810 -300 Physical Exam - Physical Exam General Appearance: WD/WN, alert, no apparent distress EENT: PERRL/EOMI, normal ENT inspection, pharynx normal, TMs normal Neck: non-tender, full range of motion, supple, normal inspection Respiratory: chest non-tender, lungs clear, normal breath sounds Cardiac/Chest: normal peripheral pulses, regular rate, rhythm, other (Right wrist inspected-no evidence of hematoma.) Peripheral Pulses: 2+: carotid (R), carotid (L), femoral (R), femoral (L), dorsalis-pedis (R), dorsalis-pedis (L) Abdomen: normal bowel sounds, non-tender, soft Male Genitalia: deferred Rectal: deferred Back: Normal inspection Skin: normal color, warm/dry Lymphatic: no adenopathy Extremities: normal range of motion, non-tender, normal inspection, normal capillary refill Neuro/Psych: no motor/sensory deficits, alert, normal mood/affect, oriented x 3 ICD10 Worksheet Patient Problems: Problems Problem Status Onset Acute coronary syndrome Acute chronic disease [facility]/transitional care Acute Syncope Acute
[2019-02-02] MEDS: CITALOPRAM 20 MG TAB PO SCH (10:51)
[2019-02-02] MEDS: CLOPIDOGREL BISULFATE 75 MG TAB PO SCH (10:51)
[2019-02-02] MEDS: ATORVASTATIN CALCIUM 40 MG TAB PO SCH (10:51)
[2019-02-02] MEDS: ASPIRIN EC 81 MG TAB PO SCH (10:52)
--- NOTE | 2019-02-02 13:45 | ECHO ---
[email or web address] [id number] Main: [phone] Echocardiography Examination Transthoracic Name: MANDI BOSTON MR#: [id number] Study Date: 02/02/2019 Study Time: 09:52 AM Date of : 1950 Age: 68 year(s) Height: ( ) Weight: ( ) BSA: Gender: Male Examination: Limited Echo Contrast: Image Quality: Adequate Rhythm: Heart Rate: BP: 101 mmHg/71 mmHg Indication: Hypotension following myocardial infarction Procedure Staff Referring Physician: Painter Chassis: Shobha Pandya [facility] Reading Physician: Taye Archibald MD Requesting Provider: Ordering Physician: Taye Archibald MD Indication: Hypotension following myocardial infarction Conclusions This is limited echocardiogram performed in this patient post inferior wall myocardial infarction with PCI and stenting who is currently hypotensive. Normal left ventricular size and systolic function. LVEF estimated at 60-65% with mild inferior hypokinesis. No evidence of pericardial effusion, VSD or free wall rupture. Normal-appearing mitral valve with [id number] mitral regurgitation and no indications of ischemic mitral regurgitation. The right ventricle appears to be mildly dilated and mildly hypokinetic. Findings Left Ventricle: LV basal/mid inferolateral avelar are akinetic. All remaining LV segments are slightly hyperdynamic.. EF range is estimated at 60 % - 65 %. IVS: No ventricular septal defect. Mitral Valve: Mitral valve appears structurally normal. Mild to moderate mitral regurgitation. Tricuspid Valve: Tricuspid valve leaflets are structurally normal. Mild tricuspid regurgitation. Exam Details Procedure Ordered: Limited Echo Procedure Status: Routine study Patient: MANDI BOSTON Study Date: 02/02/2019 Page 1 of 2 09:52 AM Image Quality: Adequate Facility Location: Cardiac Echo 1 (No Signature Object) Patient: MANDI BOSTON Study Date: 02/02/2019 Page 2 of 2 09:52 AM [id number]
[2019-02-02] MEDS ORDERED: CALCIUM CARBONATE 500 MG CHEWABLE TAB PO PRN (18:18)
[2019-02-02] MEDS: FAMOTIDINE 20 MG TAB PO SCH (19:43)
[2019-02-03 04:22] LABS: PLATELET COUNT 250 10^3/uL (150-400)
[2019-02-03 07:27] VITALS: BP 112/80
--- NOTE | 2019-02-03 08:05 | PDDCSUM ---
Discharge Summary Discharge Summary: Date of admission: 01/31/2019. Date of discharge: 02/03/2019. Discharge diagnosis: 1. Coronary artery disease. Late presentation with an inferior wall ST- elevation myocardial infarction status post percutaneous intervention and stenting with placement of a 2.5 x 16 mm synergy stent and a 2nd 2.25 x 12 mm synergy stent in the distal RCA. Follow-up echocardiography indicated a preserved ejection fraction with basal inferior hypokinesis and no significant valvular heart disease. 2. Tobacco abuse. 3. Dyslipidemia. Total cholesterol 171, LDL 90, HDL 56 and triglycerides 127. 4. COPD. 5. GERD. Hospital course: The patient presented to the emergency department at 7:14 p.m. On 01/31/2019 with precordial chest discomfort. Per review of the medical records he had been experiencing chest discomfort for about a day prior to admission to the hospital. On arrival he was noted to have ST elevations with Q -waves in the inferior leads and ongoing ST elevations in the lateral leads. He was taken emergently to cardiac catheterization. Coronary angiography demonstrated a distal right coronary artery thrombotic occlusion which was treated with PCI and stenting as noted above. During his hospitalization he remains stable. He had no arrhythmias or mechanical complications as result of his STEMI. Attempts were made it instituting high-dose beta-vivienne therapy and Scot inhibitor therapy however he developed low blood pressures as result. Therefore, these medications were reduced. At the time of admission he was hemodynamically stable and pain-free. Pertinent labs during this hospitalization: His initial CPK at arrival was 01/09 with a troponin of 94. These trended downward during this hospitalization. Total cholesterol 171, LDL 90, HDL 56 and triglycerides 127. BUN 9 and creatinine 0.6 with normal electrolytes. Discharge medications: 1. Aspirin 81 mg daily. 2. Plavix 75 mg daily. 3. Atorvastatin 80 mg daily. 4. Celexa 20 mg daily P per his home dosing regimen. 5. Albuterol inhaler 1-2 puffs as needed per his home regimen. Follow-up: He will follow-up with Dr. Mauricio Knox within the next 1-2 weeks. I anticipate that he will be referred to cardiac rehab. Discharge physical examination: Blood pressure 112/80, heart rate 59, respiratory rate 18, room air saturations 94%. HEENT no JVD, lungs clear to auscultation and percussion, cardiac regular rate and rhythm without murmurs gallops or rubs, right radial access site with minimal ecchymoses and 2+ pulse. , abdomen soft nontender with no masses or palpable aorta, extremities free of edema.
[2019-02-03] MEDS: ATORVASTATIN CALCIUM 40 MG TAB PO SCH (08:51)
[2019-02-03] MEDS: CLOPIDOGREL BISULFATE 75 MG TAB PO SCH (08:51)
[2019-02-03] MEDS: FAMOTIDINE 20 MG TAB PO SCH (08:52)
[2019-02-03] MEDS: ASPIRIN EC 81 MG TAB PO SCH (08:52)
[2019-02-03] MEDS: CITALOPRAM 20 MG TAB PO SCH (08:52)
--- NOTE | 2019-02-03 09:40 | ASMTLACE ---
CATHERINEE Length of stay for Answers: 3 days current admission Acuity / Level of Answers: Yes Care: Did the patient have an inpatient admission? Comorbidities - select Answers: Chronic pulmonary disease all that apply # of Emergency department Answers: 1-2 visits in the last 6 months Social determinants Answers: Mental health diagnosis (anxiety, depression, pers onality disorders, etc.) Score: 12 Date Signed: 02/03/2019 09:39 AM Electronically Signed By:Karla Gonzalez RN
--- NOTE | 2019-02-03 10:06 | ASMTDCNOTE ---
Case Management Discharge Discharge Order Complete? Answers: Yes Patient to Obtain Answers: Independently Medications Transportation Arranged Answers: Taxi - Voucher Discharge Comments Notes: Patient discharged home with instructions to follow up with Dr Knox in 1-2 weeks. 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 Cab voucher provided. Date Signed: 02/03/2019 10:06 AM Electronically Signed By:Karla Gonzalez RN
[2019-02-03] MEDS ORDERED: RANITIDINE HCL 150 MG/10 ML UDCUP PO ONE (17:52)
--- NOTE | 2019-02-04 08:28 | CPEKG ---
Test Reason : OPEN Blood Pressure : / mmHG Vent. Rate : 055 BPM Atrial Rate : 056 BPM P-R Int : 163 ms QRS Dur : 089 ms QT Int : 483 ms P-R-T Axes : 066 -60 -66 degrees QTc Int : 462 ms Sinus rhythm Left anterior fascicular block Posterior infarct, old Abnormal T, probable ischemia, inferior leads Confirmed by Mauricio Calvillo ([id number]) on 02/04/2019 8:27:56 AM Referred By: MAURICIO CALVILLO Confirmed By:Mauricio Calvillo
--- NOTE | 2019-02-04 08:31 | CPEKG ---
Test Reason : OPEN Blood Pressure : / mmHG Vent. Rate : 065 BPM Atrial Rate : 064 BPM P-R Int : 161 ms QRS Dur : 087 ms QT Int : 426 ms P-R-T Axes : 065 -48 -49 degrees QTc Int : 443 ms Sinus rhythm iNFEROLATERAL EVOLVING MYOCARDIAL INFARCTION Confirmed by Mauricio Calvillo ([id number]) on 02/04/2019 8:30:35 AM Referred By: MAURICIO CALVILLO Confirmed By:Mauricio Calvillo
== END 2019-02-03 10:00 | disposition home or self-care (01) | DRG 247 ==
LOC: F2N 20:22
PROVIDERS: ADMIT Internal Medicine Interventional Cardiology; ATTEND Internal Medicine Interventional Cardiology
PROC: 4A023N7 Measurement of Cardiac Sampling and Pressure, Left Heart, Percutaneous Approach (ICD-10-PCS; principal; 2019-01-31)
PROC: B2111ZZ Fluoroscopy of Multiple Coronary Arteries using Low Osmolar Contrast (ICD-10-PCS; principal; 2019-01-31)
PROC: B2151ZZ Fluoroscopy of Left Heart using Low Osmolar Contrast (ICD-10-PCS; principal; 2019-01-31)
PROC: 027035Z Dilation of Coronary Artery, One Artery with Two Drug-eluting Intraluminal Devices, Percutaneous Approach (ICD-10-PCS; principal; 2019-01-31)
DX: I21.11 ST elevation (STEMI) myocardial infarction involving right coronary artery (principal); I25.10 Atherosclerotic heart disease of native coronary artery without angina pectoris; E78.5 Hyperlipidemia, unspecified; J44.9 Chronic obstructive pulmonary disease, unspecified; K21.9 Gastro-esophageal reflux disease without esophagitis; Z72.0 Tobacco use; F20.9 Schizophrenia, unspecified
CPT/HCPCS: 84484-ER; 96374; C1725; C1769; C1874; C1887; C9606; J0583; J1644; J2250; J2270; J2405; J3010; Q9967

== ENCOUNTER 2019-02-22 12:40 | Observation (INO) | payer OTHER, MEDICAID ==
--- NOTE | 2019-02-22 12:46 | EDPHY ---
H & P Time Seen by Provider: 02/22/19 12:46 HPI/ROS: Chief Complaint: Chest pain and vomiting blood HPI: 68-year-old male complains of 2 days of severe chest pain constant since Monday when he was drinking alcohol vomited blood he states a large amount of blood and has had chest pain and dyspnea since then. Context: Patient had an KY 2 weeks ago and received a stent. He went to rehab this morning and told him about the vomiting blood and they sent him into the emergency department for further evaluation. Associated symptoms include bilateral lower extremity edema and a chronic sore throat which has been told is because he smokes. He does admit to taking his medications like he is supposed to he has not missed any doses. He does also admit to drinking Tequila this morning and drinking a 5th a week. He does not note any alleviating or exacerbating factors of his chest pain and dyspnea that has been constant for about 40 hr now. He describes today's blood as copious liquid blood and his previous episode was a couple of months ago had clots in it but this did not. He did not seek care at that time and he has never had colonoscopy or upper endoscopy. PMH: KY 2 weeks ago with stent. COPD, dyslipidemia, GERD Social History: Positive Tobacco, no Drugs, positive daily Alcohol including today ROS: Neuro: No headache Constitutional: No Fever, + dizziness ENT: No runny nose, + chronic sore throat Cardiac: + Chest Pain Pulmonary: + Shortness of Breath GI: + abdominal Pain Skin: No rash Heme: No easy bruising : + difficulty urinating Eyes: Positive chronic vision problems Musculoskeletal: No neck pain, No back pain Complete Review of systems negative except as noted above Physical Exam: General: Alert in some distress. He is a little anxious Eyes: no icterus or pallor ENT: Mouth: Mucus membranes dry Neck: supple Lungs CTA bilaterally, no respiratory distress Cardiac: Normal pulses, normal rate, normal rhythm, normal heart sounds GI: Abd Soft, moderate left upper quadrant tenderness, no distention Rectal exam light brown stool in vault. Sent to lab for Hemoccult Back: Normal inspection, nml ROM, No CVAT, no vertebral tenderness Extremities: No swelling, nml ROM Skin: Warm, pink and dry, no rash, normal turgor Neuro: A&Ox3, MAEE, Nml Speech Reevaluations, MDM, and data interpretation Data Interpretation 12 lead EKG shows normal sinus rhythm at a rate of 78 with nonspecific T-wave changes in the inferior leads and an old inferior infarct there is no acute ST elevation. Reviewed prior records - [facility]. Summary: Patient admitted with an inferior KY 01/31/2019 ago had PTCA with stent of his distal RCA. He had preserved function. Chest XR Independently viewed by me ED Course Initial Eval: Pt greeted and advised about plan for care. Consult Hospitalist, ASP NET C DEVELOPER Consult Dr. Yen, GI. Discussed case, discussed octreotide as patient is alcoholic and recent KY. Nml LFTs and plts and no other signs of cirrhosis so will hold octreotide for now. Reevaluation Patient became dizzy when sitting up, symptomatically orthostatic, no HR change. SBP-100 Medical Decision Making Differential Diagnosis and MDM: 68-year-old male 2 weeks post KY on Plavix with acute hematemesis along with chest pain and dyspnea. Differential diagnosis includes peptic ulcer disease, variceal bleed, gastritis or esophagitis. The patient is a daily drinker so is at significant risk for life- threatening causes of GI bleed. He is also on Plavix and so for these reasons we will admit for further evaluation including endoscopy. - Medical/Surgical History Hx Asthma: Yes Hx Chronic Respiratory Disease: Yes Hx Diabetes: No Hx Cardiac Disease: No Hx Renal Disease: No Hx Cirrhosis: No Hx Alcoholism: No Hx HIV/AIDS: No Hx Splenectomy or Spleen Trauma: No Other PMH: COPD, schizophrenia - Social History Smoking Status: Current every day smoker Constitutional: Initial Vital Signs Temperature (C) 36.8 C 02/22/19 12:47 Heart Rate 81 02/22/19 12:47 Respiratory Rate 20 02/22/19 12:47 Blood Pressure 108/71 02/22/19 12:47 O2 Sat (%) 89 L 02/22/19 12:47 O2 Delivery Mode Nasal Cannula O2 (L/minute) 2 Allergies/Adverse Reactions: No Known Allergies Allergy (Unverified 01/31/19 18:45) Home Medications: Medication Instructions Recorded Albuterol [Proventil Inhaler HFA 1 - 2 puffs IH Q4H PRN 01/31/19 (*)] Citalopram [CeleXA 20 MG] 20 mg PO DAILY 01/31/19 Aspirin EC [Aspirin EC 81 mg (*)] 81 mg PO DAILY tab 02/03/19 Atorvastatin Calcium [Lipitor 40 80 mg PO DAILY #30 tab 02/03/19 mg (*)] Clopidogrel Bisulfate [Plavix (*)] 75 mg PO DAILY #30 tab 02/03/19 Medical Decision Making - Diagnostics Imaging Results: Imaging Impressions Chest X-Ray 02/22/19 13:01 Impression: Stable chest with mild central peribronchial thickening and streaky basilar opacities suggesting atelectasis. ED Course/Re-evaluation: Consult hospitalist ELA Humphrey, and will admit patient to PCU to Dr. Sanchez Ness - Data Points Laboratory Results: Laboratory Results 02/22/19 12:50 02/22/19 12:50 02/22/19 02/22/19 02/22/19 12:54 12:50 12:50 WBC RBC Hgb Hct MCV MCH MCHC RDW Plt Count MPV Neut % (Auto) Lymph % (Auto) [place] % (Auto) Eos % (Auto) Baso % (Auto) Nucleat RBC Rel Count Absolute Neuts (auto) Absolute Lymphs (auto) Absolute Monos (auto) Absolute Eos (auto) Absolute Basos (auto) Absolute Nucleated RBC Immature Gran % Immature Gran # PT INR APTT Sodium 138 mEq/L mEq/L (135-145) Potassium 4.4 mEq/L mEq/L (3.5-5.2) Chloride 105 mEq/L mEq/L (97-110) Carbon Dioxide 20 mEq/l L mEq/l (22-31) Anion Gap 13 mEq/L mEq/L (6-14) BUN 18 mg/dL mg/dL (7-23) Creatinine 0.9 mg/dL mg/dL (0.7-1.3) Estimated GFR > 60 Glucose 81 mg/dL mg/dL (70-100) Calcium 9.0 mg/dL mg/dL (8.5-10.4) Total Bilirubin 0.3 mg/dL mg/dL (0.1-1.4) Conjugated Bilirubin 0.2 mg/dL mg/dL (0.0-0.5) Unconjugated Bilirubin 0.1 mg/dL mg/dL (0.0-1.1) AST 33 IU/L IU/L (17-59) ALT 38 IU/L IU/L (21-72) Alkaline Phosphatase 77 IU/L IU/L (38-126) POC Troponin I 0.03 ng/mL ng/mL (0.00-0.08) NT-Pro-B Natriuret Pep 240 pg/mL H pg/mL (0-125) Total Protein 6.8 g/dL g/dL (6.3-8.2) Albumin 4.3 g/dL g/dL (3.5-5.0) Ethyl Alcohol 253 mg/dL H mg/dL (0-10) 02/22/19 02/22/19 12:50 12:50 WBC 6.34 10^3/uL 10^3/uL (3.80-9.50) RBC 5.43 10^6/uL 10^6/uL (4.40-6.38) Hgb 14.9 g/dL g/dL (13.7-17.5) Hct 46.7 % % (40.0-51.0) MCV 86.0 fL fL (81.5-99.8) MCH 27.4 pg L pg (27.9-34.1) MCHC 31.9 g/dL L g/dL (32.4-36.7) RDW 17.2 % H % (11.5-15.2) Plt Count 309 10^3/uL 10^3/uL (150-400) MPV 8.5 fL L fL (8.7-11.7) Neut % (Auto) 53.6 % % (39.3-74.2) Lymph % (Auto) 39.6 % % (15.0-45.0) [place] % (Auto) 4.6 % % (4.5-13.0) Eos % (Auto) 1.1 % % (0.6-7.6) Baso % (Auto) 0.8 % % (0.3-1.7) Nucleat RBC Rel Count 0.0 % % (0.0-0.2) Absolute Neuts (auto) 3.40 10^3/uL 10^3/uL (1.70-6.50) Absolute Lymphs (auto) 2.51 10^3/uL 10^3/uL (1.00-3.00) Absolute Monos (auto) 0.29 10^3/uL L 10^3/uL (0.30-0.80) Absolute Eos (auto) 0.07 10^3/uL 10^3/uL (0.03-0.40) Absolute Basos (auto) 0.05 10^3/uL 10^3/uL (0.02-0.10) Absolute Nucleated RBC 0.00 10^3/uL 10^3/uL (0-0.01) Immature Gran % 0.3 % % (0.0-1.1) Immature Gran # 0.02 10^3/uL 10^3/uL (0.00-0.10) PT 12.4 SEC SEC (12.0-15.0) INR 0.96 (0.83-1.16) APTT 28.8 SEC SEC (23.0-38.0) Sodium Potassium Chloride Carbon Dioxide Anion Gap BUN Creatinine Estimated GFR Glucose Calcium Total Bilirubin Conjugated Bilirubin Unconjugated Bilirubin AST ALT Alkaline Phosphatase POC Troponin I NT-Pro-B Natriuret Pep Total Protein Albumin Ethyl Alcohol Medications Given: Discontinued Medications Pantoprazole Sodium (Protonix) 40 mg IVP EDNOW ONE Stop: 02/22/19 13:13 Last Admin: 02/22/19 13:31 Dose: 40 mg Point of Care Test Results: Chemistry 02/22/19 12:54 POC Troponin I 0.03 ng/mL ng/mL (0.00-0.08) Departure - Departure Disposition: [facility] Inpatient Acute Clinical Impression: Upper gastrointestinal bleed Chest pain Qualifiers: Chest pain type: precordial pain Qualified Code(s): R07.2 - Precordial pain Dyspnea Qualifiers: Dyspnea type: unspecified Qualified Code(s): R06.00 - Dyspnea, unspecified Condition: Serious Referrals: NONE *PRIMARY CARE P,. [Primary Care Provider] - As per Instructions
[2019-02-22 13:09] LABS: PLATELET COUNT 309 10^3/uL (150-400)
[2019-02-22] MEDS ORDERED: PANTOPRAZOLE SODIUM 40 MG VIAL IVP ONE (13:12)
[2019-02-22 13:30] LABS: INR 0.96 (0.83-1.16); PROTIME(PATIENT) 12.4 SEC (12.0-15.0)
[2019-02-22] MEDS ORDERED: ACETAMINOPHEN 500 MG TAB PO ONE (13:58)
[2019-02-22] MEDS ORDERED: CITALOPRAM 20 MG TAB PO ONE (13:58)
[2019-02-22] MEDS: LR 1,000 ML IV SCH ×2 (14:10→23:58)
[2019-02-22] MEDS ORDERED: ALBUTEROL 60 PUFFS/8 GM MDI IH PRN (16:01)
[2019-02-22] MEDS ORDERED: ALBUTEROL 3 ML DEYVIAL IH PRN (16:01)
[2019-02-22] MEDS ORDERED: ONDANSETRON 4 MG/2 ML VIAL IVP PRN (16:06)
[2019-02-22] MEDS ORDERED: ZOLPIDEM TARTRATE 5 MG TAB PO PRN (16:06)
[2019-02-22] MEDS ORDERED: ACETAMINOPHEN 325 MG TAB PO PRN (16:06)
--- NOTE | 2019-02-22 16:09 | PDGENHP ---
History and Physical History and Physical: CC: Vomiting blood HISTORY: This patient comes into the ER today stating that he vomited some red blood 2 days ago. He was eating pizza at the time and suddenly had emesis without nausea or pain. Since that time he has had no recurrence of nausea or vomiting no recurrence of any signs of bleeding and no abdominal pain no lightheadedness no syncopal type symptoms. No shortness of breath or chest discomfort. He has no prior history of GI bleeding or ulcer disease but he does drink alcohol probably 5-6 shots per day as best I can tell. Notably the patient was here just a couple weeks ago with acute myocardial infarction including troponin 131, preserved ejection fraction but with inferior and lateral wall motion abnormalities and acute ST elevations. He received stenting and was started on aspirin Plavix and statin medication. He reports compliance with all of those medicines. He has not had any symptoms of arrhythmia or heart failure in the meantime. He says he has cut back from 2 packs of cigarettes a day to 3-4 cigarettes per day ROS: A comprehensive 10 system review revealed no other significant findings PAST MEDICAL HISTORY: Coronary artery disease Tobacco abuse Alcoholism COPD FAMILY MEDICAL HISTORY: All healthy per the patient SOCIAL HISTORY: Works as a [employer] Active cigarette smoker MEDICATIONS: The patients list has been reconciled by our clinical pharmacist in the EMR. I have reviewed the list and ordered appropriate medicines. 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 Examination: General: alert, oriented, good mentation, relaxed Skin: warm, dry, good color, no rash HEENT: normal Neck: no mass or jvd Resps: relaxed Lungs: clear breath sounds Heart: regular, no murmur Abdomen: soft, nondistended, nontender, +BS, no mass Upper Extremities: normal Lower Extremities: no edema, warm No Bleeding or bruising Neurologic: normal speech/language, normal ampoule inspector, no focal weakness IV site: looks normal LABORATORY DATA: Hemoglobin 14, platelets normal, white count normal Normal troponin Unremarkable basic met panel RADIOLOGY STUDIES: I reviewed chest x-ray images from the ER today which showed no acute abnormality 12 LEAD EKG: I reviewed 12 lead EKG from the ER today and the tracing shows a sinus rhythm, with evolving ST T segment abnormalities but no sign of acute ischemia ASSESSMENT: * Hematemesis * Recent myocardial infarction with stent 2 weeks ago (echo at the time showed inferior lateral wall motion abnormalities but preserved ejection fraction in the 60s; troponin initially 131) * Alcoholism with continued alcohol abuse * Suspect thiamine deficiency * Risk of alcohol withdrawal is considered low but will need monitoring I reviewed in detail with Dr. Yen today. This patient has had a small amount of bleeding 2 days ago without recurrence and has normal blood counts and vital signs. There is concern about possibility of ulcer or even varices which seems notably less likely given his lab values and other lack of signs of advanced liver disease. At this point there is risk of doing and Scop procedures with recent fairly large AR and wall motion abnormalities. It would be preferable if we can to delay endoscopy as long as he seems stable that is probably reasonable. PLANS: * Observe overnight on java spring developer with vital signs and blood counts * PPI twice daily and continue for 8 weeks; * For now continue aspirin and Plavix * Due to risks of procedure and what appears to likely low risk of bleeding, will plan on trying to delay endoscopy for few weeks while he takes proton pump inhibitor therapy; however if he has further bleeding may need to proceed with endoscopy at this time * Had long discussion with him about attempting to stop tobacco and alcohol use I have reviewed the patient's case in detail with Dr. Keshawn Yen I have reviewed the patient's past medical records as part of this assessment, including previous hospital admission records
--- NOTE | 2019-02-22 16:11 | ASMTCMCOM ---
CM Note CM Note Notes: Pt presented to cardiac rehab today and relayed that he has chest pain for 2 days and has vomited a large quantity of blood. Pt had an CA 2 weeks ago and has been drinking, which includes Tequila this am. He has a hx of copd and schizophrenia. 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 He has an apt at [address] in [place] through [facility]. No therapies ordered, dc needs unclear but likely independent. DC Plan: TBD Date Signed: 02/22/2019 04:11 PM Electronically Signed By:Diana Patterson RN
[2019-02-22] MEDS: THIAMINE HCL 100 MG TAB PO SCH (16:30)
[2019-02-22] MEDS: PANTOPRAZOLE SODIUM 40 MG TAB PO SCH (20:15)
[2019-02-22] MEDS: FAMOTIDINE 20 MG TAB PO SCH (20:15)
[2019-02-22] MEDS: CLOTRIMAZOLE 1% 15 GM CRTUBE TP SCH (20:24)
[2019-02-22] MEDS: [UNRECOGNIZED DRUG - OTHER] RTEYE SCH (20:24)
[2019-02-22] MEDS ORDERED: IPRATROPIUM HFA INHALER IH PRN (21:00)
[2019-02-22] MEDS ORDERED: MELATONIN 3 MG TAB PO SCH (21:00)
[2019-02-22] MEDS ORDERED: ADVAIR IH PRN (21:00)
--- NOTE | 2019-02-22 22:53 | SOAPPROG ---
SOAP Progress Note Assessment/Plan: Assessment: Plan: 02/22/19 22:51 See dictated consult for details. Recommend PPI therapy and monitor H/H. No evidence of active GI bleed. Suspect M-W tear. Due to recent cardiac event, very high risk for sedation. Will only plan on EGD if evidence of an active GI bleed. Objective: Vital Signs Temp Pulse Resp BP Pulse Ox 37.1 C 83 18 112/70 93 02/22/19 19:21 02/22/19 19:21 02/22/19 19:21 02/22/19 19:21 02/22/19 19:21 02/21/19 02/22/19 02/23/19 05:59 05:59 05:59 Intake Total 800 Output Total 450 Balance 350 PT 12.4 SEC (12.0-15.0) 02/22/19 12:50 INR 0.96 (0.83-1.16) 02/22/19 12:50 ICD10 Worksheet Patient Problems: Problems Problem Status Onset Chest pain Acute Dyspnea Acute Upper gastrointestinal bleed Acute chronic disease [facility]/transitional care Acute Syncope Acute Acute coronary syndrome Acute
[2019-02-23 06:44] VITALS: BP 138/84
[2019-02-23] MEDS: FAMOTIDINE 20 MG TAB PO SCH (07:53)
[2019-02-23] MEDS: PANTOPRAZOLE SODIUM 40 MG TAB PO SCH (07:53)
[2019-02-23] MEDS: THIAMINE HCL 100 MG TAB PO SCH (07:53)
[2019-02-23] MEDS: CLOTRIMAZOLE 1% 15 GM CRTUBE TP SCH (07:54)
[2019-02-23] MEDS: [UNRECOGNIZED DRUG - OTHER] RTEYE SCH (07:54)
[2019-02-23] MEDS ORDERED: ATORVASTATIN CALCIUM 40 MG TAB PO SCH (09:00)
[2019-02-23] MEDS ORDERED: CLOPIDOGREL BISULFATE 75 MG TAB PO SCH (09:00)
[2019-02-23] MEDS ORDERED: CITALOPRAM 20 MG TAB PO SCH (09:00)
--- NOTE | 2019-02-23 09:22 | PDDCSUM ---
Discharge Summary Discharge Summary: DISCHARGE DIAGNOSES: * Hematemesis * Mild post hemorrhagic anemia * Recent myocardial infarction with stent placement, taking aspirin and Plavix CONSULTANTS: Dr. Keshawn Yen [facility] COURSE SUMMARY: This patient came in after an episode of hematemesis the day before his presentation to the ER. There had been no nausea vomiting or abdominal pain. Since the episode he continued to eat and drink normally. He has not had melenic stools. Notably the patient is taking aspirin and Plavix because of recent placement of cardiac stents in mid January when he presented with an [place]. At that time he had significant infarction with troponin 131. He had significant wall motion abnormalities but preserved ejection fraction on echo at the time. Here he had no further bleeding or nausea issues and was eating without difficulty. There is no sign of angina and no sign of heart failure or arrhythmia.. The patient has not had any weight loss or early satiety symptoms and no dysphagia problems. I reviewed his case in detail with Dr. Yen from Gastroenterology. It was felt that since he did not have any recurrence of bleeding in his vital signs and hemoglobin were normal, that he would be best served by treating him with acid reduction and avoiding a endoscopy if possible for a few weeks to allow full cardiac recovery. If he has any recurrence of bleeding he would need to be considered for urgent upper endoscopy. He has continued to smoke there was decreased from 2 packs a day to 3 cigarettes per day, and has continued to drink Tequila 4-6 shots per day. He was strongly advised to not have any alcohol over the next 8 weeks and then decrease his alcohol intake beyond that. He is advised to continue his decreased tobacco use and consider over time attempting to trying get off altogether. He is advised to continue taking his aspirin and Plavix and now take twice daily proton pump inhibitor, but is also advised that he should return to the ER promptly for any recurrence of bleeding. PENDING TEST RESULTS: None MEDICATION CHANGES: Addition of Protonix 40 mg twice daily FOLLOW-UP PLAN: With Dr. Yen in 4 weeks Patient is where to return to the ER for any repeat bleeding episodes Continue follow up with Cardiology as previously planned Greater than 35 minutes bedside and care coordination time today
--- NOTE | 2019-02-23 10:22 | ASMTDCNOTE ---
Case Management Discharge Discharge Order Complete? Answers: Yes Patient to Obtain Answers: Independently Medications Transportation Arranged Answers: Other Notes: bus paid for by pt Discharge Comments Notes: 02/23/2019 Case Management Note Met w/pt. NAVNEET signed. There are no case management d/c needs identified. Pt plans to bus home using his own resources. Left vm with Andrae Randolph [phone] [facility] on d/c. Case Management d/c poc: independent with follow up as directed. Date Signed: 02/23/2019 10:21 AM Electronically Signed By:Shreya Panchal RN
--- NOTE | 2019-02-23 10:23 | ASDISCHSUM ---
Discharge Information Plan Status:Home with No Needs Medically Cleared to Leave:02/23/2019 Discharge Date:02/23/2019 CM D/C Disposition:Home, Routine, Self-Care ADT D/C Disposition:Home, Routine, Self-Care Projected Discharge Date:02/23/2019 Transportation at D/C: Discharge Delay Reason: Follow-Up Date:02/23/2019 Discharge Slot: Final Diagnosis: Placement Information Patient Contact Information Contact Name:PEÑA Relationship:Other Address: Work Phone: City: [facility] Phone: State/Zip Code: Email: Financial Information Financial Class:Medicare Primary Plan Desc:MEDICARE INPATIENT Primary Plan Number:[id number] Secondary Plan Desc:MEDICA[place] Secondary Plan Number:[id number] Assessment Information [facility] CM Progress Note CM Note CM Note Notes: Pt presented to cardiac rehab today and relayed that he has chest pain for 2 days and has vomited a large quantity of blood. Pt had an ME 2 weeks ago and has been drinking, which includes Tequila this am. He has a hx of copd and schizophrenia. He has a case preparer and liner through [facility]/ Custodial: Andrae Randolph [phone], called and left message. He has an apt at [address] in [place] through [facility]. No therapies ordered, dc needs unclear but likely independent. DC Plan: TBD Date Signed: 02/22/2019 04:11 PM Electronically Signed By:Diana Patterson RN Case Management Discharge Plan Note Case Management Discharge Discharge Order Complete? Answers: Yes Patient to Obtain Answers: Independently Medications Transportation Arranged Answers: Other Notes: bus paid for by pt Discharge Comments Notes: 02/23/2019 Case Management Note Met w/pt. NAVNEET signed. There are no case management d/c needs identified. Pt plans to bus home using his own resources. Left vm with Andrae Randolph [phone] case operator for [facility] the [facility] on d/c. Case Management d/c poc: independent with follow up as directed. Date Signed: 02/23/2019 10:21 AM Electronically Signed By:Shreya Panchal RN Intervention Information Intervention Type:*Incorrect Registration Date of Service:02/22/2019 06:16 PM Patient Type:Observation Staff Member:ELÍAS Atwood Courtney Hours: Discipline: Severity: Comment: Intervention Type:*TOTH-Signed Date of Service:02/23/2019 10:15 AM Patient Type:Observation Staff Member:ELÍAS Panchal, Shreya Hours: Discipline: Severity: Comment:
--- NOTE | 2019-02-23 10:23 | ASMTLACE ---
LACE Length of stay for Answers: Less than 1 day current admission Acuity / Level of Answers: Yes Care: Did the patient have an inpatient admission? Comorbidities - select Answers: Chronic pulmonary disease all that apply Previous myocardial infarction # of Emergency department Answers: 3-4 visits in the last 6 months Social determinants Answers: Mental health diagnosis (anxiety, depression, pers onality disorders, etc.) Score: 12 Date Signed: 02/23/2019 10:22 AM Electronically Signed By:Shreya Panchal RN
--- NOTE | 2019-02-23 13:36 | GCON ---
[f rep st] CONSULTATION DATE OF CONSULTATION: 02/22/2019 REFERRING PHYSICIAN: Hebert Ness MD REASON FOR CONSULTATION: Hematemesis. CHIEF COMPLAINT: Hematemesis. HISTORY OF PRESENT ILLNESS: The patient is a 68-year-old male with history of alcohol use, recent WA with cardiac stenting approximately 2 weeks ago, who presents to [facility] with complaints of chest pain, as well as hematemesis. The patient drinks alcohol on a regular basis. He said 2 days ago he was eating pizza and suddenly threw up bright red blood. He denies any known exacerbating or alleviating factors to his symptoms. He states it was a large amount of blood. He has been taking Plavix, as well as aspirin due to his recent cardiac event. Since that time, he denies any black or tarry stools. He also denies any further episodes of vomiting. He does, however, state that he was not looking at his stools closely. He has had some minimal chest discomfort. He denies any prior episodes of GI bleeding. He denies a prior EGD or colonoscopy. He drinks tequila on an almost daily basis. I am being asked by Dr. Ness to evaluate the hematemesis. PAST MEDICAL HISTORY: 1. Recent coronary event with stenting. 2. Tobacco use. 3. Alcoholism. 4. COPD. 5. Dyslipidemia. 6. GERD. PAST SURGICAL HISTORY: None. ALLERGIES: NKDA. MEDICATIONS: Albuterol citalopram, aspirin, atorvastatin, Plavix. SOCIAL HISTORY: Positive alcohol and cigarette use. FAMILY HISTORY: No history of colon cancer, stomach cancer, or esophageal cancer. REVIEW OF SYSTEMS: A 14-point comprehensive review of systems was asked. Pertinent positives and negatives per HPI. PHYSICAL EXAM: VITAL SIGNS: Blood pressure 120/78, pulse 75, respirations 16, temperature 36. . GENERAL: Awake, alert, oriented x3. No distress. HEENT anicteric sclerae. Moist mucosa. NECK: No JVD. CARDIOVASCULAR: Regular rate and rhythm. Positive S1, S2. No murmurs or gallops appreciated. LUNGS: Clear to auscultation bilaterally. No wheezes, rales, or rhonchi. ABDOMEN: Soft, nontender, nondistended. Positive bowel sounds. No guarding or rebound. EXTREMITIES: No clubbing, cyanosis, or edema. NEUROLOGICAL: Cranial nerves 2 through 12 are grossly intact. PSYCH: Normal affect. SKIN: No rash. LABORATORY: Blood work: WBC 6.24, hemoglobin 14.9, hematocrit 46.7. INR 0.96. Alkaline phosphatase 77, AST 33, ALT 38, total bilirubin 0.3, creatinine 0.9. Platelets 309. Stool occult negative. ASSESSMENT AND PLAN: 1. Hematemesis- 1 episode approximately 2 days ago. On blood work, no evidence of portal hypertension. However, there is significant alcohol use. Hemoccult negative and hemoglobin normal, with no evidence of an ongoing gastrointestinal bleed. At this time, suspect he may have had a Neeta-Berger tear. Due to his previous cardiac event with recent stenting, he is extremely high risk of sedation. Due to this as well as no evidence of an active GI bleed , recommend a more conservative approach. Would recommend PPI therapy at this time. If any evidence of ongoing gastrointestinal bleed, would consider proceeding with endoscopic examination with Anesthesiology. We will check blood work for H pylori. 2. Chronic obstructive pulmonary disease. 3. Alcohol use. 4. Recent myocardial infarction. Thank you very much for this consultation. /[id number]/MODL MTDD
--- NOTE | 2019-02-25 10:40 | CPEKG ---
Test Reason : OPEN Blood Pressure : / mmHG Vent. Rate : 061 BPM Atrial Rate : 061 BPM P-R Int : 160 ms QRS Dur : 090 ms QT Int : 442 ms P-R-T Axes : 053 -60 -32 degrees QTc Int : 446 ms Sinus rhythm Abnormal R-wave progression, early transition Confirmed by Frank Cleveland ([id number]) on 02/25/2019 10:39:52 AM Referred By: Hebert Ness Confirmed By:Frank Cleveland
--- NOTE | 2019-02-27 20:36 | CPEKG ---
Test Reason : OPEN Blood Pressure : / mmHG Vent. Rate : 068 BPM Atrial Rate : 069 BPM P-R Int : 159 ms QRS Dur : 091 ms QT Int : 435 ms P-R-T Axes : 069 -64 -37 degrees QTc Int : 463 ms Sinus rhythm LAD, consider left anterior fascicular block Consider right ventricular hypertrophy Nonspecific T abnormalities, inferior leads Unchanged in comparison to prior Confirmed by Gonzalo Peralta ([id number]) on 02/27/2019 8:36:22 PM Referred By: Hebert Ness Confirmed By:Gonzalo Peralta
== END 2019-02-23 11:40 | disposition home or self-care (01) ==
LOC: INTOOBSV 13:55 → F2W 15:05
PROVIDERS: ADMIT Internal Medicine; ATTEND Internal Medicine
DX: K92.0 Hematemesis (principal); D64.9 Anemia, unspecified; I21.11 ST elevation (STEMI) myocardial infarction involving right coronary artery; I25.10 Atherosclerotic heart disease of native coronary artery without angina pectoris; Z95.5 Presence of coronary angioplasty implant and graft; F17.210 Nicotine dependence, cigarettes, uncomplicated; F10.20 Alcohol dependence, uncomplicated; J44.9 Chronic obstructive pulmonary disease, unspecified; E78.5 Hyperlipidemia, unspecified; K21.9 Gastro-esophageal reflux disease without esophagitis; F20.9 Schizophrenia, unspecified
CPT/HCPCS: 84484-ER; 96374; G0480

== ENCOUNTER 2019-03-01 14:32 | Observation (INO) | payer OTHER, MEDICAID ==
--- NOTE | 2019-03-01 14:38 | EDPHY ---
H & P Time Seen by Provider: 03/01/19 14:38 HPI/ROS: CHIEF COMPLAINT: I had bad heartburn and thought I was going to have a heart attack HISTORY OF PRESENT ILLNESS: Patient has been drinking alcohol today last methamphetamine 4 days ago. About 30 min prior to EMS arrival he said he started having a bad heartburn, retrosternal burning, not like the symptoms he had in his myocardial infarction last month. Today it is burning, does not radiate to his jaw, not associated with shortness of breath. Arrives by EMS with symptoms resolving. Moderate at home, mild here. REVIEW OF SYSTEMS: Eye: no change in vision ENT: no sore throat Cardiac: No palpitations or syncope Pulmonary: Nonproductive cough for 2 days but not short of breath. Abdomen: no vomiting, diarrhea, abdominal pain Musculoskeletal: no back pain Skin: no rash Neuro: no headache Constitutional: no fever : no urinary symptoms Patient says he has auditory hallucinations. A comprehensive 10 point review of systems is otherwise negative aside from elements mentioned in the history of present illness. PAST MEDICAL HISTORY: Coronary disease with recent stenting on 01/31/2019, a subsequent admission for possible upper GI bleed Social history: Alcohol and methamphetamine today, tobacco smoker General Appearance: Alert and conversant, cooperative. Eyes: No scleral icterus. ENT, Mouth: Normal mucous membranes. Respiratory: Normal respiratory effort, breath sounds equal, lungs are clear to auscultation. Cardiovascular: Regular rate and rhythm. No murmur. Gastrointestinal: Abdomen is soft and non tender. Neurological: Alert, face symmetric, normal motor and sensory in extremities. Skin: Warm and dry, no rashes. Musculoskeletal: No peripheral edema. Psychiatric: Restless, agitated, denies suicidal or homicidal ideation. Emergency Department course/MDM: EKG and troponin, GI cocktail, CBC chemistry and chest x-ray. 1523: Chest x-ray does not show pneumonia. EKG and troponin are not acute. Feels better after GI cocktail. BUN and creatinine suggestive of dehydration, will add ethanol level and IV hydration with 2 L normal saline. 1735: 2nd chemistry shows improved creatinine but potassium 2.6. Magnesium 2 g IV, potassium 40 mEq orally, admission for monitoring and further electrolyte correction. Smoking Status: Current every day smoker Constitutional: Initial Vital Signs Temperature (C) 36.5 C 03/01/19 14:32 Heart Rate 88 03/01/19 14:32 Respiratory Rate 16 03/01/19 14:32 Blood Pressure 113/91 H 03/01/19 14:32 O2 Sat (%) 92 03/01/19 14:32 O2 Delivery Mode Nasal Cannula O2 (L/minute) 2 Allergies/Adverse Reactions: No Known Allergies Allergy (Unverified 01/31/19 18:45) Home Medications: Medication Instructions Recorded Albuterol [Proventil Inhaler HFA 2 puffs IH Q6HRS PRN 01/31/19 (*)] Citalopram [CeleXA 20 MG] 20 mg PO DAILY 01/31/19 Advair Hfa 230mcg-21 2 puffs IH BID 02/22/19 Aspirin [Aspirin 81mg (*)] 81 mg PO DAILY 02/22/19 Atorvastatin Calcium 80 mg PO DAILY 02/22/19 Clopidogrel Bisulfate [Plavix (*)] 75 mg PO DAILY 02/22/19 Ipratropium [Atrovent Hfa (*)] 2 puffs IH QID 02/22/19 Pantoprazole Sodium [Protonix 40mg 40 mg PO BID #60 tab 02/23/19 (*)] Medical Decision Making - Diagnostics Imaging Results: Imaging Impressions Chest X-Ray 03/01/19 14:47 Impression:1. Little if any change. No convincing evidence of acute pneumonia. If clinically indicated noncontrast chest CT might be useful to evaluate for interstitial lung disease as well as better characterize a possible noncalcified left lung nodule. Findings discussed with Dr. Donald at 15:07 PM Imaging: I viewed and interpreted images myself Differential Diagnosis: Differential diagnosis considered for chest pain including but not limited to myocardial ischemia, aortic dissection, pericarditis, pulmonary embolus, chest wall pain, pleural inflammation and pulmonary infectious causes. Critical Care Time: Critical care time spent by me, Dr. Donald, exclusively with the care of this patient was 30 minutes, exclusive of PA or ELECTRIC SCOOP OPERATOR time and exclusive of separate procedures. The organ system at risk was metabolic and I ordered IV fluid resuscitation, oral potassium replacement, IV magnesium replacement, multiple diagnostics to stabilize the patient and prevent worsening of the patient's condition. - Data Points Laboratory Results: Laboratory Results 03/01/19 14:52 03/01/19 16:45 03/01/19 03/01/19 03/01/19 16:45 14:56 14:52 WBC RBC Hgb Hct MCV MCH MCHC RDW Plt Count MPV Neut % (Auto) Lymph % (Auto) Esmeralda % (Auto) Eos % (Auto) Baso % (Auto) Nucleat RBC Rel Count Absolute Neuts (auto) Absolute Lymphs (auto) Absolute Monos (auto) Absolute Eos (auto) Absolute Basos (auto) Absolute Nucleated RBC Immature Gran % Immature Gran # Sodium 133 mEq/L L mEq/L (135-145) Potassium 2.6 mEq/L L* mEq/L (3.3-5.0) Chloride 101 mEq/L mEq/L (97-110) Carbon Dioxide 20 mEq/l L mEq/l (22-31) Anion Gap 12 mEq/L mEq/L (6-14) BUN 37 mg/dL H mg/dL (7-23) Creatinine 1.3 mg/dL mg/dL (0.7-1.3) Estimated GFR 55 Glucose 98 mg/dL mg/dL (70-100) Calcium 7.5 mg/dL L mg/dL (8.5-10.4) Total Bilirubin 1.3 mg/dL mg/dL (0.1-1.4) Conjugated Bilirubin 0.5 mg/dL mg/dL (0.0-0.5) Unconjugated Bilirubin 0.8 mg/dL mg/dL (0.0-1.1) AST 100 IU/L H IU/L (17-59) ALT 62 IU/L IU/L (21-72) Alkaline Phosphatase 95 IU/L IU/L (38-126) POC Troponin I 0.04 ng/mL ng/mL (0.00-0.08) Total Protein 7.8 g/dL g/dL (6.3-8.2) Albumin 4.8 g/dL g/dL (3.5-5.0) Ethyl Alcohol 03/01/19 03/01/19 03/01/19 14:52 14:52 14:52 WBC 8.43 10^3/uL 10^3/uL (3.80-9.50) RBC 5.85 10^6/uL 10^6/uL (4.40-6.38) Hgb 15.8 g/dL g/dL (13.7-17.5) Hct 48.4 % % (40.0-51.0) MCV 82.7 fL fL (81.5-99.8) MCH 27.0 pg L pg (27.9-34.1) MCHC 32.6 g/dL g/dL (32.4-36.7) RDW 16.2 % H % (11.5-15.2) Plt Count 258 10^3/uL 10^3/uL (150-400) MPV 8.7 fL fL (8.7-11.7) Neut % (Auto) 69.2 % % (39.3-74.2) Lymph % (Auto) 21.1 % % (15.0-45.0) Esmeralda % (Auto) 7.8 % % (4.5-13.0) Eos % (Auto) 0.7 % % (0.6-7.6) Baso % (Auto) 0.8 % % (0.3-1.7) Nucleat RBC Rel Count 0.0 % % (0.0-0.2) Absolute Neuts (auto) 5.83 10^3/uL 10^3/uL (1.70-6.50) Absolute Lymphs (auto) 1.78 10^3/uL 10^3/uL (1.00-3.00) Absolute Monos (auto) 0.66 10^3/uL 10^3/uL (0.30-0.80) Absolute Eos (auto) 0.06 10^3/uL 10^3/uL (0.03-0.40) Absolute Basos (auto) 0.07 10^3/uL 10^3/uL (0.02-0.10) Absolute Nucleated RBC 0.00 10^3/uL 10^3/uL (0-0.01) Immature Gran % 0.4 % % (0.0-1.1) Immature Gran # 0.03 10^3/uL 10^3/uL (0.00-0.10) Sodium 132 mEq/L L mEq/L (135-145) Potassium 3.2 mEq/L L mEq/L (3.5-5.2) Chloride 93 mEq/L L mEq/L (97-110) Carbon Dioxide 20 mEq/l L mEq/l (22-31) Anion Gap 19 mEq/L H mEq/L (6-14) BUN 44 mg/dL H mg/dL (7-23) Creatinine 1.7 mg/dL H mg/dL (0.7-1.3) Estimated GFR 40 Glucose 117 mg/dL H mg/dL (70-100) Calcium 9.4 mg/dL mg/dL (8.5-10.4) Total Bilirubin Conjugated Bilirubin Unconjugated Bilirubin AST ALT Alkaline Phosphatase POC Troponin I Total Protein Albumin Ethyl Alcohol 78 mg/dL H mg/dL (0-10) Medications Given: Discontinued Medications Al Hydroxide/Mg Hydroxide (Maalox Susp) 30 ml PO ONCE ONE Stop: 03/01/19 14:52 Last Admin: 03/01/19 15:01 Dose: 30 ml Hyoscyamine Sulfate (Levsin, Hyomax-Sl) 0.25 mg PO ONCE ONE Stop: 03/01/19 14:52 Last Admin: 03/01/19 15:01 Dose: 0.25 mg Sodium Chloride (Ns) 1,000 mls @ 0 mls/hr IV EDNOW ONE; Wide Open PRN Reason: Protocol Stop: 03/01/19 15:23 Last Admin: 03/01/19 15:30 Dose: 1,000 mls Sodium Chloride (Ns) 1,000 mls @ 0 mls/hr IV EDNOW ONE; Wide Open PRN Reason: Protocol Stop: 03/01/19 15:23 Last Admin: 03/01/19 15:30 Dose: 1,000 mls Magnesium Sulfate (Magnesium Sulf 2 Gm (Premix)) 50 mls @ 50 mls/hr IV EDNOW ONE Stop: 03/01/19 18:33 Last Admin: 03/01/19 17:43 Dose: 50 mls Lidocaine (Lidocaine 2% Viscous) 15 ml PO ONCE ONE Stop: 03/01/19 14:52 Last Admin: 03/01/19 15:01 Dose: 15 ml Potassium Chloride (Klor-Con) 40 meq PO EDNOW ONE Stop: 03/01/19 17:35 Last Admin: 03/01/19 17:43 Dose: 40 meq Point of Care Test Results: Chemistry 03/01/19 14:56 POC Troponin I 0.04 ng/mL ng/mL (0.00-0.08) Departure - Departure Disposition: [facility] Acute Clinical Impression: Dehydration, Hypokalemia GERD (gastroesophageal reflux disease) Qualifiers: Esophagitis presence: esophagitis presence not specified Qualified Code(s): K21.9 - Gastro-esophageal reflux disease without esophagitis Alcoholic intoxication Qualifiers: Complication of substance-induced condition: uncomplicated Qualified Code(s): F10.920 - Alcohol use, unspecified with intoxication, uncomplicated Condition: Good
[2019-03-01] MEDS ORDERED: MAG HYDROX/AL HYDROX/SIMETH 30 ML UDCUP PO ONE (14:51)
[2019-03-01] MEDS ORDERED: LIDOCAINE 2% VISCOUS 15 ML UDCUP PO ONE (14:51)
[2019-03-01] MEDS ORDERED: HYOSCYAMINE SULFATE 0.125 MG TAB PO ONE (14:51)
[2019-03-01 15:01] LABS: PLATELET COUNT 258 10^3/uL (150-400)
[2019-03-01] MEDS ORDERED: NS 1,000 ML IV ONE ×2 (15:22)
--- NOTE | 2019-03-01 17:13 | CPEKG ---
Test Reason : OPEN Blood Pressure : / mmHG Vent. Rate : 093 BPM Atrial Rate : 093 BPM P-R Int : 148 ms QRS Dur : 095 ms QT Int : 380 ms P-R-T Axes : 049 -86 -07 degrees QTc Int : 473 ms Sinus rhythm Probable left atrial enlargement Consider right ventricular hypertrophy Anterolateral infarct, age indeterminate Confirmed by Madan Donald ([id number]) on 03/01/2019 5:13:07 PM Referred By: Madan Donald Confirmed By:Madan Donald
[2019-03-01] MEDS ORDERED: MAGNESIUM SULF 2 GM/WATER 50 ML IV ONE (17:34)
[2019-03-01] MEDS ORDERED: POTASSIUM CL 10 MEQ TAB PO ONE (17:34)
[2019-03-01] MEDS ORDERED: ZOLPIDEM TARTRATE 5 MG TAB PO PRN (18:06)
[2019-03-01] MEDS ORDERED: ONDANSETRON 4 MG/2 ML VIAL IVP PRN (18:06)
[2019-03-01] MEDS ORDERED: ACETAMINOPHEN 325 MG TAB PO PRN (18:06)
--- NOTE | 2019-03-01 18:14 | PDGENHP ---
History and Physical History and Physical: CC: Heartburn HISTORY: This patient comes into the ER today complaining of episodes heartburn on and off for the past 48 hr or more. Notably he was just here / for vomiting with a post vomiting episode of upper GI bleed presumed to be vomiting induced. He drinks heavily and has cut back on cigarettes but is still smoking and has a fatty diet. He was started on proton pump inhibitor twice daily as he left the hospital earlier this month and says he has been compliant with that. However he had he continues to drink heavily in says he had a pt of liquor today. In addition to the alcohol and tobacco he says he did use 1 hit of IV meth phentermine 4 days ago. He shows me a needle toby on his for right forearm Notably however the patient was here in January with a STEMI inferior lateral MS with a right coronary occlusion stented and left vessels 30% or less stenosis. He has noted no symptoms of heart failure or palpitations since then. He says he has been taking his aspirin Plavix and statin medicines reliably and he does have the bottles here with him tonight. 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 I have reviewed the list and ordered appropriate medicines. PHYSICAL EXAMINATION: Vital Signs: Chronometer Adjuster: Examination: General: alert, oriented, good mentation, relaxed Skin: warm, dry, good color, no rash HEENT: normal Neck: no mass or jvd Resps: relaxed Lungs: clear breath sounds Heart: regular, no murmur Abdomen: soft, nondistended, nontender, +BS, no mass Upper Extremities: normal Lower Extremities: no edema, warm No Bleeding or bruising Neurologic: normal speech/language, normal senior compensation consultant, no focal weakness IV site: looks normal LABORATORY DATA: On initial chemistry today sodium 132, potassium 3.2, BUN 44, creatinine 1.7, with an anion gap of 19 After hydration repeat chemistry shows sodium 133, potassium 2.6, a anion gap down to 12, BUN creatinine 37/1.3 CBC unremarkable Alcohol level in the 80s Troponin normal RADIOLOGY STUDIES: 12 LEAD EKG: I reviewed 12 lead EKG tracing in the ER which shows sinus rhythm, some old inferior T-wave inversions but no acute ischemia I reviewed his previous EKGs from earlier this month in from January. In January he had acute inferolateral myocardial infarction with lateral ST elevation ASSESSMENT: * Chest pain vomiting in pt w recent vomiting induced upper gi bleed that resolved * Ongoing use of etoh (1 pint today), tobacco, methamphetamine (1 dose IV 4 days ago) * Recent STEMI Inferolateral MS w troponin 10 01/2019 * states compliance w plavix, statin, protonix, and has all 3 bottles w him here * Dehydration from vomiting * Hypokalemia from vomiting, alcohol, likely poor intake * Acute Kidney injury from dehydration, other factors * presumed thiamine deficiency PLANS: * Observaton on PCU * IV hydration * electrolyte replacement * continue usual cardiac meds * repeat a troponin to ensure stability * His heartburn is likely GI but reasonable to have cardiology see to determine if stress testing warranted given all of above (cath 02/08 w stent to R, 30% or less stenosis of other vessels at the time * thiamine * continue protonix - original plan was bid use for 8 weeks from 02/20, and outpatient GI follow up, continue that, consider adding H2 block after ppi * I counseled him at length again on the dangers of his substance abuse but commended him on taking his prescription meds * He agrees to HIV appetite is testing says he has not been tested for a while I have reviewed the patient's case in detail with Dr. Madan Donald I have reviewed the patient's past medical records as part of this assessment, including previous hospital admission records
[2019-03-01] MEDS ORDERED: ALBUTEROL 60 PUFFS/8 GM MDI IH PRN (19:00)
[2019-03-01] MEDS: PANTOPRAZOLE SODIUM 40 MG TAB PO SCH (20:07)
[2019-03-01] MEDS: POTASSIUM Cl (KCl) 40 MEQ in NS 1,000 ML IV SCH (20:07)
[2019-03-01] MEDS ORDERED: MELATONIN 3 MG TAB PO SCH (21:00)
[2019-03-01] MEDS: IPRATROPIUM HFA INHALER IH SCH (21:30)
[2019-03-01] MEDS: FLUTICASONE/SALMETER 500/50MCG DISKUS IH SCH (21:33)
[2019-03-01] MEDS: NICOTINE 14 MG/24 HR PATCH TD SCH (22:10)
[2019-03-01] MEDS: SUCRALFATE 1 GM/10 ML UDCUP PO SCH (22:10)
[2019-03-02] MEDS: POTASSIUM Cl (KCl) 40 MEQ in NS 1,000 ML IV SCH (04:07)
[2019-03-02] MEDS: IPRATROPIUM HFA INHALER IH SCH ×2 (05:27→10:16)
--- NOTE | 2019-03-02 07:33 | CPEKG ---
Test Reason : OPEN Blood Pressure : / mmHG Vent. Rate : 070 BPM Atrial Rate : 072 BPM P-R Int : 114 ms QRS Dur : 094 ms QT Int : 458 ms P-R-T Axes : 230 -62 -51 degrees QTc Int : 495 ms Ectopic atrial rhythm Atrial premature complex Confirmed by Frank Cleveland ([id number]) on 03/02/2019 7:33:43 AM Referred By: Hebert Ness Confirmed By:Frank Cleveland
[2019-03-02 08:56] VITALS: BP 113/74
[2019-03-02] MEDS ORDERED: THIAMINE HCL 100 MG TAB PO SCH (09:00)
[2019-03-02] MEDS ORDERED: CLOPIDOGREL BISULFATE 75 MG TAB PO SCH (09:00)
[2019-03-02] MEDS ORDERED: ASPIRIN 81 MG CHEWABLE TAB PO SCH (09:00)
[2019-03-02] MEDS ORDERED: CITALOPRAM 20 MG TAB PO SCH (09:00)
[2019-03-02] MEDS ORDERED: ATORVASTATIN CALCIUM 40 MG TAB PO SCH (09:00)
[2019-03-02] MEDS: SUCRALFATE 1 GM/10 ML UDCUP PO SCH (09:06)
[2019-03-02] MEDS: PANTOPRAZOLE SODIUM 40 MG TAB PO SCH (09:06)
[2019-03-02] MEDS: NICOTINE 14 MG/24 HR PATCH TD SCH (09:06)
[2019-03-02] MEDS: FLUTICASONE/SALMETER 500/50MCG DISKUS IH SCH (10:15)
--- NOTE | 2019-03-02 12:50 | ASMTCMCOM ---
CM Note CM Note Notes: Reviewed pt in rounds, pt admtted for complaints of heartburn, he was just here on 02/22. He drinks heavily and admits to doing a hit of meth, he was counseled on substance abuse by . Pt ok for dc home, independent but will need a ride home, doesn't have any money with him for taxi. CM scheduled Lyft with [employer]. DC Plan: Independent Date Signed: 03/02/2019 12:49 PM Electronically Signed By:Diana Patterson RN
--- NOTE | 2019-03-02 12:52 | ASMTLACE ---
LACE Length of stay for Answers: Less than 1 day current admission Acuity / Level of Answers: No Care: Did the patient have an inpatient admission? Comorbidities - select Answers: Chronic pulmonary disease all that apply Coronary Artery Disease Other Notes: GI Bleed # of Emergency department Answers: 3-4 visits in the last 6 months Social determinants Answers: History of substance abuse (ETOH, street drugs, prescription drugs, etc.) Score: 11 Date Signed: 03/02/2019 12:51 PM Electronically Signed By:Diana Patterson RN
--- NOTE | 2019-03-02 16:35 | PDDCSUM ---
Discharge Summary Discharge Summary: Discharge diagnosis Chest pain Methamphetamine use Alcohol abuse Gastritis Tobacco abuse COPD Hypokalemia The patient was admitted with chest pain. An EKG was obtained which showed previous KS but no acute ischemia. Troponins were obtained x3 and were negative. He was given a GI cocktail with resolution of his pain in the emergency room. However labs were notable for of hypokalemia and so the decision was made to admit the patient for repletion of his potassium. In the morning repeat potassium was normal. The patient no longer had any chest pain. 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 Disposition Home independent I spent less than 30 min on the discharge of this patient
[2019-03-04 03:17] LABS: HEPATITIS B CORE AB TOTAL REACTIVE (NEGATIVE); HEPATITIS C ANTIBODY TOTAL REACTIVE (NEGATIVE); HIV TYPE 1 AND 2 NEGATIVE (NEGATIVE)
[2019-03-04 04:34] LABS: HEPATITIS B CORE AB IGM NEGATIVE (NEGATIVE)
== END 2019-03-02 12:40 | disposition home or self-care (01) ==
LOC: EDUNIT# → F2W 19:05
PROVIDERS: ADMIT Internal Medicine; ATTEND Internal Medicine
DX: E87.6 Hypokalemia (principal); E86.0 Dehydration; I25.2 Old myocardial infarction; R07.89 Other chest pain; F15.90 Other stimulant use, unspecified, uncomplicated; F10.120 Alcohol abuse with intoxication, uncomplicated; K29.70 Gastritis, unspecified, without bleeding; F17.210 Nicotine dependence, cigarettes, uncomplicated; J44.9 Chronic obstructive pulmonary disease, unspecified; I25.10 Atherosclerotic heart disease of native coronary artery without angina pectoris; N17.9 Acute kidney failure, unspecified; R91.1 Solitary pulmonary nodule; Z95.5 Presence of coronary angioplasty implant and graft; Y90.9 Presence of alcohol in blood, level not specified
CPT/HCPCS: 71046; 93005; 96361; 96365; 99291; G0378; J3475; J3480; 84484-ER; 86704-90; 86705-90; G0472; G0480

== ENCOUNTER 2019-03-29 12:57 | Observation (INO) | payer OTHER, MEDICAID | END 2019-03-30 16:17 | disposition home or self-care (01) | LOC: F2W 15:44 ==

== ENCOUNTER 2019-04-01 17:22 | Emergency (ER) | payer OTHER, MEDICAID | END 2019-04-01 19:47 | disposition home or self-care (01) ==